=== PATIENT | female | born 1960 ===

== ENCOUNTER 2016-09-21 17:09 | Observation (INO) | payer MEDICAID ==
[2016-09-21] MEDS ORDERED: Piperacillin/Tazobact 3.375 GM in Sodium Chloride 0.9% 100 ML IVPB STA (18:26)
--- NOTE | 2016-09-21 19:05 | ED PDOC ---
HPI: General Adult Time Seen by Provider: 09/21/16 18:02 Chief Complaint (Nursing): Breast Problem Chief Complaint (Provider): Lump on left breast History Per: Patient History/Exam Limitations: no limitations Onset/Duration Of Symptoms: Persistent (3 weeks ) Current Symptoms Are (Timing): Still Present Additional Complaint(s): Becca Barbour is a 56 y/o female presenting to the ER on 09/21/2016 with complaints of a painful lump on her left breast that has been persistent for the past three weeks. Patient denies any associated discharge, fever, or shortness of breath. Patient states she does not have a family history of breast cancer. She notes one year ago she had a routine mammogram performed which was normal. Past Medical History Reviewed: Historical Data, Nursing Documentation, Vital Signs Vital Signs: Last Vital Signs Temp 98 F 09/21/16 17:45 Pulse 75 09/21/16 17:45 Resp 18 09/21/16 17:45 BP 158/82 H 09/21/16 17:45 Pulse Ox 98 09/22/16 00:01 - Medical History PMH: HTN - Surgical History Surgical History: - Family History Family History: States: Unknown Family Hx - Social History Current smoker - smoking cessation education provided: No Alcohol: None Drugs: Denies - Home Medications Home Medications: Ambulatory Orders Medication Instructions Recorded Aspirin [Ecotrin] 81 mg PO DAILY #0 tabec 06/28/15 Lisinopril/Hydrochlorothiazide 1 tab PO DAILY #0 tablet 06/28/15 [Lisinopril-Hctz 20-25 mg Tab] MetFORMIN [glucoPHAGE] 1,000 mg PO BID #0 tab 06/28/15 SITagliptin [Januvia] 50 mg PO DAILY #0 tab 06/28/15 - Allergies Allergies/Adverse Reactions: Allergies Allergy/AdvReac Type Severity Reaction Status Date / Time No Known Allergies Allergy Verified 06/27/15 17:16 Review of Systems ROS Statement: Except As Marked, All Systems Reviewed And Found Negative Constitutional: Negative for: Fever Respiratory: Negative for: Shortness of Breath Skin: Positive for: Other ((+) lump on left breast ) Neurological: Negative for: Weakness, Numbness Physical Exam - Reviewed Nursing Documentation Reviewed: Yes Vital Signs Reviewed: Yes - Physical Exam Appears: Positive for: Non-toxic, No Acute Distress Head Exam: Positive for: ATRAUMATIC, NORMOCEPHALIC Skin: Positive for: Normal Color. Negative for: Rash Eye Exam: Positive for: Normal appearance, EOMI, PERRL ENT: Positive for: Normal ENT Inspection Neck: Positive for: Normal, Painless ROM, Supple Cardiovascular/Chest: Positive for: Other (Dime sized fluctuance mass on one o clock position of areola w/ underlying large indurated mass with moderate erythema, no nipple discharge) Respiratory: Positive for: Normal Breath Sounds. Negative for: Respiratory Distress Gastrointestinal/Abdominal: Positive for: Normal Exam, Soft. Negative for: Tenderness Back: Positive for: Normal Inspection. Negative for: L CVA Tenderness, R CVA Tenderness Extremity: Positive for: Normal ROM. Negative for: Deformity, Swelling Neurologic/Psych: Positive for: Alert, Oriented. Negative for: Motor/Sensory Deficits - Laboratory Results Result Diagrams: 09/21/16 19:25 09/21/16 19:25 - ECG O2 Sat by Pulse Oximetry: 98 Medical Decision Making Medical Decision Makin:02 Initial Impression- 56 y/o female with lump on left breast Initial Plan- * Type and Screen * EKG * CMP * CBC w/ differential * PT * PT/INR * CXR * Vancomycin * Zosyn * Blood Cx * Urinalysis * US Breast Limited Pt will be placed under ED Observation. See ED OBS for further updates. Documented by Kyra Neff, acting as a scribe for Taj Bettencourt PA-C All medical record entries made by the Scribe were at my direction and personally dictated by me. I have reviewed the chart and agree that the record accurately reflects my personal performance of the history, physical exam, medical decision making, and the department course for this patient. I have also personally directed, reviewed, and agree with the discharge instructions and disposition. ED OBSERVATION Date of observation admission: 09/21/16 Time of observation admission: 18:28 - Observation admission statement Patient is being placed in observation because:: Secondary to extensive ED workup - Goals of Observation Goals of observation are:: Pending labs, imaging studies, re-evaluation and final disposition. - Progress Note Progress Note: 09/22/16 20:09 Glucose: 413 Insulin 6 units IV, IV NS bolus x 1 given. 09/22/16 21:20 Breast US: Solid hypervascular ill-defined mass retroareolar region left breast 12 o'clock. Infectious/inflammatory process ease are likely. Malignancy should also be considered. Case d/w Dr. Rice and arrangements made for admission. Repeat FSBS: 189 No ketones in urine. Disposition - Clinical Impression Clinical Impression: Cellulitis of breast, Cyst of breast - Patient ED Disposition Is Patient to be Admitted: Yes - Disposition Disposition Time: 21:20 Condition: STABLE
--- NOTE | 2016-09-21 19:10 | US ---
PROCEDURE: Left breast ultrasound HISTORY: Left breast lump COMPARISON: None TECHNIQUE: Standard protocol for this study/examination. FINDINGS: Cyst(s): None Breast mass: Superficial solid retroareolar mass 12 o'clock left breast. The mass is hypervascular. There is a cutaneous and subcutaneous component. The mass measures 1.3 x 3.4 x 4.3 cm. Dilated ducts: None Parenchymal distortion: None Skin thickening or subcutaneous abnormalities: Adjacent cutaneous and subcutaneous edema noted. IMPRESSION: Solid hypervascular ill-defined mass retroareolar region left breast 12 o'clock. Infectious/inflammatory process ease are likely. Malignancy should also be considered. BIRADS 0 Incomplete - if inflammatory etiologies are considered follow-up to resolution recommended. If malignancy is even a remote possibility follow-up mammogram is strongly recommended.
[2016-09-21 19:44] LABS: BASO % 0.7 % (0.0-2.0); EOS # 0.2 K/uL (0.0-0.7); EOS % 2.7 % (0.0-4.0); HEMATOCRIT 42.8 % (34.0-47.0); LYMPH # 2.4 K/uL (1.0-4.3); LYMPH % 33.5 % (20.0-40.0); MEAN CELL VOLUME 88.2 fl (81.0-99.0); MEAN CORPUSCULAR HEMOGLOBIN 28.8 pg (27.0-31.0); MEAN CORPUSCULAR HGB CONC 32.6 g/dL (33.0-37.0); MEAN PLATELET VOLUME 10.2 fl (7.2-11.7); MONO # 0.5 K/uL (0.0-0.8); MONO % 7.1 % (0.0-10.0); NRBC % 0.1 % (0.0-0.0); RED CELL DISTRIBUTION WIDTH 13.5 % (11.5-14.5); WHITE BLOOD COUNT 7.1 K/uL (4.8-10.8)
[2016-09-21] MEDS ORDERED: Vancomycin 1 g Inj ONE (19:49)
[2016-09-21 20:01] LABS: ALB/GLOB RATIO 1.2 (1.0-2.1); ALKALINE PHOSPHATASE 157 U/L (38-126); ALT/SGPT 32 U/L (9-52); AST/SGOT 26 U/L (14-36); BILIRUBIN,TOTAL 0.7 mg/dl (0.2-1.3); BLOOD UREA NITROGEN 17 mg/dl (7-17); CALCIUM 9.6 mg/dL (8.4-10.2); CARBON DIOXIDE 27 mmol/L (22-30); CHLORIDE 97 mmol/L (98-107); GFR AFRICAN-AMERICAN > 60; POTASSIUM 4.5 MMOL/L (3.6-5.0); SODIUM 135 mmol/l (132-148); TOTAL PROTEIN 7.3 G/DL (6.3-8.2)
[2016-09-21 20:17] LABS: GLUCOSE,RANDOM 413 mg/dL (65-105)
[2016-09-21] MEDS ORDERED: Sodium Chloride 0.9% 1,000 ML IV STA (20:19)
[2016-09-21] MEDS ORDERED: Insulin Regular 100 units/ml IVP STA (20:19)
[2016-09-21 20:27] LABS: PARTIAL THROMBOPLASTIN TIME 28.9 Seconds (25.6-37.1)
[2016-09-21 20:31] LABS: PH,URINE 5.5 (5.0-8.0); URINE BILIRUBIN NEGATIVE (NEGATIVE); URINE BLOOD NEGATIVE (NEGATIVE); URINE COLOR YELLOW (YELLOW); URINE GLUCOSE (UA) >1000 mg/dL (Normal); URINE KETONE NEGATIVE (NEGATIVE)
[2016-09-21 20:32] LABS: URINE LEUKOCYTE ESTERASE TRACE Leu/uL (Negative); URINE PROTEIN NEGATIVE (NEGATIVE); URINE UROBILINOGEN 0.2 mg/dL (0.2-1.0)
[2016-09-21 20:41] LABS: RBC URINE < 1 /hpf (0-3); URINE BACTERIA FEW (<OCC); WBC URINE 12 /hpf (0-5)
[2016-09-21] MEDS ORDERED: Piperacillin/Tazobact 3.375 gm Inj IVPB ONE (21:33)
[2016-09-22] MEDS ORDERED: Piperacillin/Tazobact 3.375 GM in Sodium Chloride 0.9% 100 ML IVPB SCH ×2 (01:00→09:00)
[2016-09-22] MEDS ORDERED: Piperacillin/Tazobact 3.375 gm Inj IVPB ONE (05:53)
[2016-09-22 06:24] LABS: ALB/GLOB RATIO 1.1 (1.0-2.1); ALKALINE PHOSPHATASE 115 U/L (38-126); ALT/SGPT 35 U/L (9-52); AST/SGOT 24 U/L (14-36); BILIRUBIN,TOTAL 0.8 mg/dl (0.2-1.3); BLOOD UREA NITROGEN 13 mg/dl (7-17); CALCIUM 8.6 mg/dL (8.4-10.2); CARBON DIOXIDE 25 mmol/L (22-30); CHLORIDE 104 mmol/L (98-107); GFR AFRICAN-AMERICAN > 60; GLUCOSE,RANDOM 288 mg/dL (65-105); POTASSIUM 3.7 MMOL/L (3.6-5.0); SODIUM 137 mmol/l (132-148); TOTAL PROTEIN 6.1 G/DL (6.3-8.2)
--- NOTE | 2016-09-22 07:57 | CP.PCM.CON ---
<Elvis Weston - Last Filed: 09/22/16 07:53> History of Present Illness - History of Present Illness History of Present Illness: Surgery consult for Dr. Preston Becca Barbour is a 56 y/o female w PMH of DM and HTN came with complaints of a painful lump on her left breast that has been persistent for the past three weeks. Pt reports that lump is getting larger and more painful progressively. Patient denies any associated discharge, recent trauma, fever, chills, nausea, vomiting , chest pain or shortness of breath. Patient states family history of breast cancer. She notes one year ago she had a routine mammogram performed which was normal. US of the breast shows infectious/inflammatory process. Her glucose level was 400. WBC was wnl. PMH: DM, HTN PSH: Review of Systems - Review of Systems Review of Systems: See HPI Past Patient History - Past Medical History & Family History Past Medical History?: Yes - Past Social History Alcohol: None Drugs: Denies - CARDIAC Hx Hypertension: Yes - PULMONARY Hx Respiratory Disorders: No - NEUROLOGICAL Hx Neurological Disorder: No - ENDOCRINE/METABOLIC Hx Endocrine Disorders: Yes Hx Diabetes Mellitus Type 2: Yes - HEMATOLOGICAL/ONCOLOGICAL Hx Blood Disorders: No - INTEGUMENTARY Hx Dermatological Problems: No - MUSCULOSKELETAL/RHEUMATOLOGICAL Hx Musculoskeletal Disorders: No Hx Falls: No - GASTROINTESTINAL Hx Gastrointestinal Disorders: No - GENITOURINARY/GYNECOLOGICAL Hx Genitourinary Disorders: No Other/Comment: ectopic - PSYCHIATRIC Hx Psychophysiologic Disorder: No Hx Substance Use: No - SURGICAL HISTORY Hx Surgeries: Yes Hx Section: Yes - ANESTHESIA Hx Anesthesia: Yes Hx Anesthesia Reactions: No Meds Allergies/Adverse Reactions: Allergies Allergy/AdvReac Type Severity Reaction Status Date / Time No Known Allergies Allergy Verified 06/27/15 17:16 - Medications Medications: Current Medications Aspirin (Ecotrin) 81 mg PO DAILY [facility] Hydrochlorothiazide (Hydrodiuril) 25 mg PO DAILY [facility] Piperacillin Sod/Tazobactam (Sod 3.375 gm/ Sodium Chloride) 100 mls @ 100 mls/ hr IVPB Q8 [facility] Last Admin: 09/22/16 06:12 Dose: 100 mls/hr Vancomycin HCl 1 gm/ Sodium (Chloride) 250 mls @ 166.667 mls/hr IVPB DAILY [facility] Insulin Human Regular (Humulin R) 0 units SC ACHS [facility] Lisinopril (Zestril) 20 mg PO DAILY [facility] Metformin HCl (Glucophage) 1,000 mg PO BID [facility] Sitagliptin Phosphate (Januvia) 50 mg PO DAILY [facility] Physical Exam - Constitutional Appears: Well, No Acute Distress - Head Exam Head Exam: ATRAUMATIC, NORMAL INSPECTION, NORMOCEPHALIC - Eye Exam Eye Exam: EOMI, Normal appearance, PERRL Pupil Exam: NORMAL ACCOMODATION, PERRL - ENT Exam ENT Exam: Mucous Membranes Moist, Normal Exam - Neck Exam Neck exam: Positive for: Normal Inspection - Respiratory Exam Respiratory Exam: Clear to Auscultation Bilateral, NORMAL BREATHING PATTERN - Cardiovascular Exam Cardiovascular Exam: REGULAR RHYTHM - GI/Abdominal Exam GI & Abdominal Exam: Normal Bowel Sounds, Soft. absent: Distended, Firm, Guarding, Hernia, Tenderness - Extremities Exam Extremities exam: Positive for: normal inspection - Back Exam Back exam: NORMAL INSPECTION - Neurological Exam Neurological exam: Alert, CN II-XII Intact, Normal Gait, Oriented x3, Reflexes Normal - Psychiatric Exam Psychiatric exam: Normal Affect, Normal Mood - Skin Skin Exam: Dry, Erythema, Intact, Normal Color, Warm Additional comments: L breast : above the nipple 5cm erythema, 1cm central fluctuant. TTP. NO discharge. Warm Results - Vital Signs Recent Vital Signs: Last Vital Signs Temp 97.1 F L 09/22/16 06:04 Pulse 69 09/22/16 06:04 Resp 14 09/22/16 06:04 BP 176/96 H 09/22/16 06:04 Pulse Ox 98 09/22/16 06:04 - Labs Result Diagrams: 09/21/16 19:25 09/22/16 05:35 Labs: Laboratory Results - last 24 hr 09/21/16 09/21/16 09/21/16 19:25 19:25 19:25 WBC 7.1 RBC 4.86 Hgb 14.0 Hct 42.8 MCV 88.2 MCH 28.8 MCHC 32.6 L RDW 13.5 Plt Count 238 MPV 10.2 Neut % (Auto) 56.0 Lymph % (Auto) 33.5 [place] % (Auto) 7.1 Eos % (Auto) 2.7 Baso % (Auto) 0.7 Neut # 4.0 Lymph # 2.4 [place] # 0.5 Eos # 0.2 Baso # 0.0 ESR PT INR APTT Sodium 135 Potassium 4.5 Chloride 97 L Carbon Dioxide 27 Anion Gap 16 BUN 17 Creatinine 0.6 L Est GFR ( Amer) > 60 Est GFR (Non-Af Amer) > 60 Random Glucose 413 H* D Calcium 9.6 Total Bilirubin 0.7 AST 26 ALT 32 Alkaline Phosphatase 157 H D Total Protein 7.3 Albumin 3.9 Globulin 3.4 Albumin/Globulin Ratio 1.2 Urine Color Urine Clarity Urine pH Ur Specific [place] Urine Protein Urine Glucose (UA) Urine Ketones Urine Blood Urine Nitrate Urine Bilirubin Urine Urobilinogen Ur Leukocyte Esterase Urine RBC (Auto) Urine Microscopic WBC Ur Squamous Epith Cells Urine Bacteria Blood Type O POSITIVE Antibody Screen Negative BBK History Checked No verified bt 09/21/16 09/21/16 09/22/16 19:25 20:09 05:35 WBC RBC Hgb Hct MCV MCH MCHC RDW Plt Count MPV Neut % (Auto) Lymph % (Auto) [place] % (Auto) Eos % (Auto) Baso % (Auto) Neut # Lymph # [place] # Eos # Baso # ESR PT 10.3 INR 0.9 APTT 28.9 Sodium 137 Potassium 3.7 Chloride 104 Carbon Dioxide 25 Anion Gap 11 BUN 13 Creatinine 0.5 L Est GFR ( Amer) > 60 Est GFR (Non-Af Amer) > 60 Random Glucose 288 H Calcium 8.6 Total Bilirubin 0.8 AST 24 ALT 35 Alkaline Phosphatase 115 Total Protein 6.1 L Albumin 3.2 L Globulin 2.9 Albumin/Globulin Ratio 1.1 Urine Color Yellow Urine Clarity Clear Urine pH 5.5 Ur Specific [place] 1.010 Urine Protein Negative Urine Glucose (UA) >1000 Urine Ketones Negative Urine Blood Negative Urine Nitrate Negative Urine Bilirubin Negative Urine Urobilinogen 0.2 Ur Leukocyte Esterase Trace H Urine RBC (Auto) < 1 Urine Microscopic WBC 12 H Ur Squamous Epith Cells 15 H Urine Bacteria Few H Blood Type Antibody Screen BBK History Checked 09/22/16 05:35 WBC RBC Hgb Hct MCV MCH MCHC RDW Plt Count MPV Neut % (Auto) Lymph % (Auto) [place] % (Auto) Eos % (Auto) Baso % (Auto) Neut # Lymph # [place] # Eos # Baso # ESR 10 PT INR APTT Sodium Potassium Chloride Carbon Dioxide Anion Gap BUN Creatinine Est GFR ( Amer) Est GFR (Non-Af Amer) Random Glucose Calcium Total Bilirubin AST ALT Alkaline Phosphatase Total Protein Albumin Globulin Albumin/Globulin Ratio Urine Color Urine Clarity Urine pH Ur Specific [place] Urine Protein Urine Glucose (UA) Urine Ketones Urine Blood Urine Nitrate Urine Bilirubin Urine Urobilinogen Ur Leukocyte Esterase Urine RBC (Auto) Urine Microscopic WBC Ur Squamous Epith Cells Urine Bacteria Blood Type Antibody Screen BBK History Checked Assessment & Plan - Assessment and Plan (Free Text) Assessment: L breast abscess She notes one year ago she had a routine mammogram performed which was normal. US of the breast shows infectious/inflammatory process. Her glucose level was 400. WBC was wnl. -OR today at 4pm for needle aspiration and / or I &D -NPO -IVF -Glucose control -Medical management DW Dr. Preston <Lewis Preston - Last Filed: 09/22/16 16:33> Meds - Medications Medications: Current Medications Aspirin (Ecotrin) 81 mg PO DAILY [facility] Vancomycin HCl 1 gm/ Sodium (Chloride) 250 mls @ 166.667 mls/hr IVPB DAILY [facility] Sodium Chloride (Sodium Chloride 0.9%) 1,000 mls @ 100 mls/hr IV .Q10H [facility] Stop: 09/23/16 08:17 Last Admin: 09/22/16 08:48 Dose: 100 mls/hr Piperacillin Sod/Tazobactam (Sod 3.375 gm/ Sodium Chloride) 100 mls @ 100 mls/ hr IVPB Q8@0600,1400,2200 [facility] Last Admin: 09/22/16 15:28 Dose: 100 mls/hr Insulin Human Regular (Humulin R) 0 units SC ACHS [facility] Last Admin: 09/22/16 08:21 Dose: 12 u Lisinopril (Zestril) 40 mg PO DAILY [facility] Metformin HCl (Glucophage) 1,000 mg PO BID [facility] Last Admin: 09/22/16 08:55 Dose: 1,000 mg Pioglitazone HCl (Actos) 30 mg PO DAILY [facility] Sitagliptin Phosphate (Januvia) 100 mg PO DAILY [facility] Results - Vital Signs Recent Vital Signs: Last Vital Signs Temp 101.4 F H 09/22/16 16:20 Pulse 78 09/22/16 16:20 Resp 20 09/22/16 16:20 BP 111/69 09/22/16 16:20 Pulse Ox 97 09/22/16 16:20 - Labs Result Diagrams: 09/21/16 19:25 09/22/16 05:35 Labs: Laboratory Results - last 24 hr 09/21/16 09/21/16 09/21/16 19:25 19:25 19:25 WBC 7.1 RBC 4.86 Hgb 14.0 Hct 42.8 MCV 88.2 MCH 28.8 MCHC 32.6 L RDW 13.5 Plt Count 238 MPV 10.2 Neut % (Auto) 56.0 Lymph % (Auto) 33.5 [place] % (Auto) 7.1 Eos % (Auto) 2.7 Baso % (Auto) 0.7 Neut # 4.0 Lymph # 2.4 [place] # 0.5 Eos # 0.2 Baso # 0.0 ESR PT INR APTT Sodium 135 Potassium 4.5 Chloride 97 L Carbon Dioxide 27 Anion Gap 16 BUN 17 Creatinine 0.6 L Est GFR ( Amer) > 60 Est GFR (Non-Af Amer) > 60 POC Glucose (mg/dL) Random Glucose 413 H* D Calcium 9.6 Total Bilirubin 0.7 AST 26 ALT 32 Alkaline Phosphatase 157 H D Total Protein 7.3 Albumin 3.9 Globulin 3.4 Albumin/Globulin Ratio 1.2 Urine Color Urine Clarity Urine pH Ur Specific [place] Urine Protein Urine Glucose (UA) Urine Ketones Urine Blood Urine Nitrate Urine Bilirubin Urine Urobilinogen Ur Leukocyte Esterase Urine RBC (Auto) Urine Microscopic WBC Ur Squamous Epith Cells Urine Bacteria Blood Type O POSITIVE Antibody Screen Negative BBK History Checked No verified bt 09/21/16 09/21/16 09/21/16 19:25 20:09 22:23 WBC RBC Hgb Hct MCV MCH MCHC RDW Plt Count MPV Neut % (Auto) Lymph % (Auto) [place] % (Auto) Eos % (Auto) Baso % (Auto) Neut # Lymph # [place] # Eos # Baso # ESR PT 10.3 INR 0.9 APTT 28.9 Sodium Potassium Chloride Carbon Dioxide Anion Gap BUN Creatinine Est GFR ( Amer) Est GFR (Non-Af Amer) POC Glucose (mg/dL) 189 H Random Glucose Calcium Total Bilirubin AST ALT Alkaline Phosphatase Total Protein Albumin Globulin Albumin/Globulin Ratio Urine Color Yellow Urine Clarity Clear Urine pH 5.5 Ur Specific [place] 1.010 Urine Protein Negative Urine Glucose (UA) >1000 Urine Ketones Negative Urine Blood Negative Urine Nitrate Negative Urine Bilirubin Negative Urine Urobilinogen 0.2 Ur Leukocyte Esterase Trace H Urine RBC (Auto) < 1 Urine Microscopic WBC 12 H Ur Squamous Epith Cells 15 H Urine Bacteria Few H Blood Type Antibody Screen BBK History Checked 09/22/16 09/22/16 09/22/16 05:35 05:35 08:02 WBC RBC Hgb Hct MCV MCH MCHC RDW Plt Count MPV Neut % (Auto) Lymph % (Auto) [place] % (Auto) Eos % (Auto) Baso % (Auto) Neut # Lymph # [place] # Eos # Baso # ESR 10 PT INR APTT Sodium 137 Potassium 3.7 Chloride 104 Carbon Dioxide 25 Anion Gap 11 BUN 13 Creatinine 0.5 L Est GFR ( Amer) > 60 Est GFR (Non-Af Amer) > 60 POC Glucose (mg/dL) 311 H Random Glucose 288 H Calcium 8.6 Total Bilirubin 0.8 AST 24 ALT 35 Alkaline Phosphatase 115 Total Protein 6.1 L Albumin 3.2 L Globulin 2.9 Albumin/Globulin Ratio 1.1 Urine Color Urine Clarity Urine pH Ur Specific [place] Urine Protein Urine Glucose (UA) Urine Ketones Urine Blood Urine Nitrate Urine Bilirubin Urine Urobilinogen Ur Leukocyte Esterase Urine RBC (Auto) Urine Microscopic WBC Ur Squamous Epith Cells Urine Bacteria Blood Type Antibody Screen BBK History Checked 09/22/16 11:37 WBC RBC Hgb Hct MCV MCH MCHC RDW Plt Count MPV Neut % (Auto) Lymph % (Auto) [place] % (Auto) Eos % (Auto) Baso % (Auto) Neut # Lymph # [place] # Eos # Baso # ESR PT INR APTT Sodium Potassium Chloride Carbon Dioxide Anion Gap BUN Creatinine Est GFR ( Amer) Est GFR (Non-Af Amer) POC Glucose (mg/dL) 266 H Random Glucose Calcium Total Bilirubin AST ALT Alkaline Phosphatase Total Protein Albumin Globulin Albumin/Globulin Ratio Urine Color Urine Clarity Urine pH Ur Specific [place] Urine Protein Urine Glucose (UA) Urine Ketones Urine Blood Urine Nitrate Urine Bilirubin Urine Urobilinogen Ur Leukocyte Esterase Urine RBC (Auto) Urine Microscopic WBC Ur Squamous Epith Cells Urine Bacteria Blood Type Antibody Screen BBK History Checked Attending/Attestation - Attestation I have personally seen and examined this patient.: Yes I have fully participated in the care of the patient.: Yes I have reviewed all pertinent clinical information: Yes Notes (Text): 09/22/16 16:32 Pt was seen and examined at bedside on 09/22/16 Agree with above note and assessment. Pt with left breast pain and Abscess OR for I & D of left breast abscess Consent NPO, IVF IV antibiotics Plan d.w pt in detail Risk and benefit explained in detail.
--- NOTE | 2016-09-22 08:16 | CARD ---
APPROVED REPORT EKG Measurement Heart [id number] <Conclusion> Normal sinus rhythm Septal infarct, age undetermined Abnormal ECG
[2016-09-22] MEDS: Insulin Regular 100 units/ml SC SCH ×3 (08:21→22:00)
[2016-09-22] MEDS: Sodium Chloride 0.9% 1,000 ML IV SCH ×2 (08:48→18:30)
[2016-09-22] MEDS ORDERED: Patient's Own Med (Lisinopril/Hydrochlorothiazide [Lisinopril-Hctz 20-25 Mg Tab] 1 TAB) PO SCH (09:00)
--- NOTE | 2016-09-22 13:02 | RAD ---
HISTORY: clearance COMPARISON: 06/27/2015 TECHNIQUE: Chest PA and lateral FINDINGS: LUNGS: No active pulmonary disease. PLEURA: No significant pleural effusion identified. No pneumothorax apparent. CARDIOVASCULAR: Normal. OSSEOUS STRUCTURES: No significant abnormalities. VISUALIZED UPPER ABDOMEN: Normal. OTHER FINDINGS: None. IMPRESSION: No active disease.
[2016-09-22] MEDS: Piperacillin/Tazobact 3.375 GM in Sodium Chloride 0.9% 100 ML IVPB SCH ×2 (15:28→22:22)
--- NOTE | 2016-09-22 19:46 | CP.PCM.CON ---
History of Present Illness - History of Present Illness History of Present Illness: ID NOTE PATIENT IS 56 YO FEMALE ADMITTED C LEFT BREAST ABSCESS. SHE STATES IT STARTED 4 WEEKS AGO AND HAS BECOME LARGER AND MORE PAINFUL DENIES FEVER AND CHILLS FOR I & D TOMORROW HAVE INCREASED DOSE OF VANCOMYCIN CONTINUE ZOSYN Past Patient History - Past Medical History & Family History Past Medical History?: Yes - Past Social History Smoking Status: Never Smoked - CARDIAC Hx Hypertension: Yes - PULMONARY Hx Respiratory Disorders: No - NEUROLOGICAL Hx Neurological Disorder: No - ENDOCRINE/METABOLIC Hx Endocrine Disorders: Yes Hx Diabetes Mellitus Type 2: Yes - HEMATOLOGICAL/ONCOLOGICAL Hx Blood Disorders: No - INTEGUMENTARY Hx Dermatological Problems: No - MUSCULOSKELETAL/RHEUMATOLOGICAL Hx Falls: No - GASTROINTESTINAL Hx Gastrointestinal Disorders: No - GENITOURINARY/GYNECOLOGICAL Hx Genitourinary Disorders: No Other/Comment: ectopic - PSYCHIATRIC Hx Substance Use: No - SURGICAL HISTORY Hx Surgeries: Yes Hx Section: Yes - ANESTHESIA Hx Anesthesia: Yes Hx Anesthesia Reactions: No Meds Allergies/Adverse Reactions: Allergies Allergy/AdvReac Type Severity Reaction Status Date / Time No Known Allergies Allergy Verified 06/27/15 17:16 - Medications Medications: Current Medications Acetaminophen (Tylenol 325mg Tab) 650 mg PO Q4 PRN PRN Reason: Headache Aspirin (Ecotrin) 81 mg PO DAILY [facility] Sodium Chloride (Sodium Chloride 0.9%) 1,000 mls @ 100 mls/hr IV .Q10H [facility] Stop: 09/23/16 08:17 Last Admin: 09/22/16 18:30 Dose: 100 mls/hr Piperacillin Sod/Tazobactam (Sod 3.375 gm/ Sodium Chloride) 100 mls @ 100 mls/ hr IVPB Q8@0600,1400,2200 [facility] Last Admin: 09/22/16 15:28 Dose: 100 mls/hr Vancomycin HCl 1 gm/ Sodium (Chloride) 250 mls @ 166.667 mls/hr IVPB Q12 [facility] Insulin Human Regular (Humulin R) 0 units SC ACHS [facility] Last Admin: 09/22/16 16:30 Dose: Not Given Lisinopril (Zestril) 40 mg PO DAILY [facility] Metformin HCl (Glucophage) 1,000 mg PO BID [facility] Last Admin: 09/22/16 19:17 Dose: 1,000 mg Pioglitazone HCl (Actos) 30 mg PO DAILY [facility] Sitagliptin Phosphate (Januvia) 100 mg PO DAILY [facility] Results - Vital Signs Recent Vital Signs: Last Vital Signs Temp 101.4 F H 09/22/16 16:20 Pulse 78 09/22/16 16:20 Resp 20 09/22/16 16:20 BP 111/69 09/22/16 16:20 Pulse Ox 97 09/22/16 16:20 - Labs Result Diagrams: 09/21/16 19:25 09/22/16 05:35 Labs: Laboratory Results - last 24 hr 09/21/16 09/21/16 09/21/16 19:25 19:25 19:25 WBC 7.1 RBC 4.86 Hgb 14.0 Hct 42.8 MCV 88.2 MCH 28.8 MCHC 32.6 L RDW 13.5 Plt Count 238 MPV 10.2 Neut % (Auto) 56.0 Lymph % (Auto) 33.5 [place] % (Auto) 7.1 Eos % (Auto) 2.7 Baso % (Auto) 0.7 Neut # 4.0 Lymph # 2.4 [place] # 0.5 Eos # 0.2 Baso # 0.0 ESR PT INR APTT Sodium 135 Potassium 4.5 Chloride 97 L Carbon Dioxide 27 Anion Gap 16 BUN 17 Creatinine 0.6 L Est GFR ( Amer) > 60 Est GFR (Non-Af Amer) > 60 POC Glucose (mg/dL) Random Glucose 413 H* D Calcium 9.6 Total Bilirubin 0.7 AST 26 ALT 32 Alkaline Phosphatase 157 H D Total Protein 7.3 Albumin 3.9 Globulin 3.4 Albumin/Globulin Ratio 1.2 Urine Color Urine Clarity Urine pH Ur Specific [place] Urine Protein Urine Glucose (UA) Urine Ketones Urine Blood Urine Nitrate Urine Bilirubin Urine Urobilinogen Ur Leukocyte Esterase Urine RBC (Auto) Urine Microscopic WBC Ur Squamous Epith Cells Urine Bacteria Blood Type O POSITIVE Antibody Screen Negative BBK History Checked No verified bt 09/21/16 09/21/16 09/21/16 19:25 20:09 22:23 WBC RBC Hgb Hct MCV MCH MCHC RDW Plt Count MPV Neut % (Auto) Lymph % (Auto) [place] % (Auto) Eos % (Auto) Baso % (Auto) Neut # Lymph # [place] # Eos # Baso # ESR PT 10.3 INR 0.9 APTT 28.9 Sodium Potassium Chloride Carbon Dioxide Anion Gap BUN Creatinine Est GFR ( Amer) Est GFR (Non-Af Amer) POC Glucose (mg/dL) 189 H Random Glucose Calcium Total Bilirubin AST ALT Alkaline Phosphatase Total Protein Albumin Globulin Albumin/Globulin Ratio Urine Color Yellow Urine Clarity Clear Urine pH 5.5 Ur Specific [place] 1.010 Urine Protein Negative Urine Glucose (UA) >1000 Urine Ketones Negative Urine Blood Negative Urine Nitrate Negative Urine Bilirubin Negative Urine Urobilinogen 0.2 Ur Leukocyte Esterase Trace H Urine RBC (Auto) < 1 Urine Microscopic WBC 12 H Ur Squamous Epith Cells 15 H Urine Bacteria Few H Blood Type Antibody Screen BBK History Checked 09/22/16 09/22/16 09/22/16 05:35 05:35 08:02 WBC RBC Hgb Hct MCV MCH MCHC RDW Plt Count MPV Neut % (Auto) Lymph % (Auto) [place] % (Auto) Eos % (Auto) Baso % (Auto) Neut # Lymph # [place] # Eos # Baso # ESR 10 PT INR APTT Sodium 137 Potassium 3.7 Chloride 104 Carbon Dioxide 25 Anion Gap 11 BUN 13 Creatinine 0.5 L Est GFR ( Amer) > 60 Est GFR (Non-Af Amer) > 60 POC Glucose (mg/dL) 311 H Random Glucose 288 H Calcium 8.6 Total Bilirubin 0.8 AST 24 ALT 35 Alkaline Phosphatase 115 Total Protein 6.1 L Albumin 3.2 L Globulin 2.9 Albumin/Globulin Ratio 1.1 Urine Color Urine Clarity Urine pH Ur Specific [place] Urine Protein Urine Glucose (UA) Urine Ketones Urine Blood Urine Nitrate Urine Bilirubin Urine Urobilinogen Ur Leukocyte Esterase Urine RBC (Auto) Urine Microscopic WBC Ur Squamous Epith Cells Urine Bacteria Blood Type Antibody Screen BBK History Checked 09/22/16 11:37 WBC RBC Hgb Hct MCV MCH MCHC RDW Plt Count MPV Neut % (Auto) Lymph % (Auto) [place] % (Auto) Eos % (Auto) Baso % (Auto) Neut # Lymph # [place] # Eos # Baso # ESR PT INR APTT Sodium Potassium Chloride Carbon Dioxide Anion Gap BUN Creatinine Est GFR ( Amer) Est GFR (Non-Af Amer) POC Glucose (mg/dL) 266 H Random Glucose Calcium Total Bilirubin AST ALT Alkaline Phosphatase Total Protein Albumin Globulin Albumin/Globulin Ratio Urine Color Urine Clarity Urine pH Ur Specific [place] Urine Protein Urine Glucose (UA) Urine Ketones Urine Blood Urine Nitrate Urine Bilirubin Urine Urobilinogen Ur Leukocyte Esterase Urine RBC (Auto) Urine Microscopic WBC Ur Squamous Epith Cells Urine Bacteria Blood Type Antibody Screen BBK History Checked
[2016-09-23] MEDS: Piperacillin/Tazobact 3.375 GM in Sodium Chloride 0.9% 100 ML IVPB SCH ×3 (06:02→22:35)
[2016-09-23 06:22] LABS: BLOOD UREA NITROGEN 12 mg/dl (7-17); CALCIUM 8.4 mg/dL (8.4-10.2); CARBON DIOXIDE 25 mmol/L (22-30); CHLORIDE 105 mmol/L (98-107); GFR AFRICAN-AMERICAN > 60; GLUCOSE,RANDOM 146 mg/dL (65-105); POTASSIUM 3.7 MMOL/L (3.6-5.0); SODIUM 136 mmol/l (132-148)
[2016-09-23] MEDS: Insulin Regular 100 units/ml SC SCH ×4 (07:11→22:30)
[2016-09-23] MEDS: Sodium Chloride 0.9% 1,000 ML IV SCH (08:41)
--- NOTE | 2016-09-23 10:20 | CP.PCM.HP ---
History of Present Illness - History of Present Illness History of Present Illness: This is a 56 y/o female admitted for swelling and tenderness of the left breast for almost three weeks. Has a hx of DM 2 uncontrolled and HTN. She had a normal mammogram last year. Claims that swelling developed into a lump and noted surrounding erythema hence sought medical evaluation at the ER. Initial breast US showed possible abscess/ cellulitis. Present on Admission - Present on Admission Any Indicators Present on Admission: No History of DVT/PE: No History of Uncontrolled Diabetes: Yes Urinary Catheter: No Decubitus Ulcer Present: No Review of Systems - Breasts Breasts: Pain, Skin Changes, Swelling Past Patient History - Past Medical History & Family History Past Medical History?: Yes - Past Social History Smoking Status: Never Smoked - CARDIAC Hx Hypertension: Yes - PULMONARY Hx Respiratory Disorders: No - NEUROLOGICAL Hx Neurological Disorder: No - ENDOCRINE/METABOLIC Hx Endocrine Disorders: Yes Hx Diabetes Mellitus Type 2: Yes - HEMATOLOGICAL/ONCOLOGICAL Hx Blood Disorders: No - INTEGUMENTARY Hx Dermatological Problems: No - MUSCULOSKELETAL/RHEUMATOLOGICAL Hx Falls: No - GASTROINTESTINAL Hx Gastrointestinal Disorders: No - GENITOURINARY/GYNECOLOGICAL Hx Genitourinary Disorders: No Other/Comment: ectopic - PSYCHIATRIC Hx Substance Use: No - SURGICAL HISTORY Hx Surgeries: Yes Hx Section: Yes - ANESTHESIA Hx Anesthesia: Yes Hx Anesthesia Reactions: No Meds Allergies/Adverse Reactions: Allergies Allergy/AdvReac Type Severity Reaction Status Date / Time No Known Allergies Allergy Verified 06/27/15 17:16 Physical Exam - Head Exam Head Exam: NORMAL INSPECTION - Eye Exam Eye Exam: Normal appearance - ENT Exam ENT Exam: Mucous Membranes Moist - Respiratory Exam Respiratory Exam: Clear to Auscultation Bilateral - Cardiovascular Exam Cardiovascular Exam: REGULAR RHYTHM - GI/Abdominal Exam GI & Abdominal Exam: Normal Bowel Sounds - Neurological Exam Neurological exam: Alert, CN II-XII Intact - Psychiatric Exam Psychiatric exam: Normal Mood - Skin Additional comments: swelling and tenderness on the left breast with a lump about 4 cm with surrounding erythema Results - Vital Signs Recent Vital Signs: Last Vital Signs Temp 98.2 F 09/23/16 00:53 Pulse 81 09/23/16 00:53 Resp 20 09/23/16 00:53 BP 121/78 09/23/16 00:53 Pulse Ox 99 09/23/16 00:53 - Labs Result Diagrams: 09/21/16 19:25 09/23/16 05:40 Labs: Laboratory Results - last 24 hr 09/22/16 09/22/16 09/22/16 11:37 16:24 21:58 ESR Sodium Potassium Chloride Carbon Dioxide Anion Gap BUN Creatinine Est GFR ( Amer) Est GFR (Non-Af Amer) POC Glucose (mg/dL) 266 H 101 287 H Random Glucose Calcium 09/23/16 09/23/16 05:40 05:40 ESR 12 Sodium 136 Potassium 3.7 Chloride 105 Carbon Dioxide 25 Anion Gap 10 BUN 12 Creatinine 0.5 L Est GFR ( Amer) > 60 Est GFR (Non-Af Amer) > 60 POC Glucose (mg/dL) Random Glucose 146 H Calcium 8.4 Assessment & Plan (1) Cellulitis of breast Status: Acute (2) Diabetes mellitus type 2 in nonobese Status: Acute (3) Hypertension Status: Acute - Assessment and Plan (Free Text) Plan: Iv antibiotics BP meds start po hypoglymeivcs surgical eval
--- NOTE | 2016-09-23 14:01 | CP.PCM.PN ---
Subjective - Date & Time of Evaluation Date of Evaluation: 09/23/16 Time of Evaluation: 10:00 - Subjective Subjective: pt seen and examined at bedside. No acute events overnight. Afebrile. Lying in bed comfortably, NAD. NPO since midnight. Reports feeling better overall but still complaining of left breast pain. No new complaints. OOB/ambulating w/o issue. Denies fever/chills, headaches, visual changes, CP/SOB/Palpitations, N/V/ D/C, urinary symptoms. Awaiting to go to OR for I&D around 13:00 today. Objective - Vital Signs/Intake and Output Vital Signs (last 24 hours): Temp Pulse Resp BP Pulse Ox 97.9 F 67 20 143/79 99 09/23/16 09:00 09/23/16 09:00 09/23/16 09:00 09/23/16 09:00 09/23/16 09:00 - Medications Medications: Current Medications Acetaminophen (Tylenol 325mg Tab) 650 mg PO Q4 PRN PRN Reason: Headache Last Admin: 09/22/16 19:50 Dose: 650 mg Aspirin (Ecotrin) 81 mg PO DAILY [facility] Piperacillin Sod/Tazobactam (Sod 3.375 gm/ Sodium Chloride) 100 mls @ 100 mls/ hr IVPB Q8@0600,1400,2200 [facility] Last Admin: 09/23/16 06:02 Dose: 100 mls/hr Vancomycin HCl 1 gm/ Sodium (Chloride) 250 mls @ 166.667 mls/hr IVPB Q12 [facility] Last Admin: 09/23/16 08:34 Dose: 166.667 mls/hr Insulin Human Regular (Humulin R) 0 units SC ACHS [facility] Last Admin: 09/23/16 12:13 Dose: Not Given Lisinopril (Zestril) 40 mg PO DAILY [facility] Last Admin: 09/23/16 08:43 Dose: Not Given Metformin HCl (Glucophage) 1,000 mg PO BID [facility] Last Admin: 09/23/16 08:42 Dose: Not Given Pioglitazone HCl (Actos) 30 mg PO DAILY [facility] Last Admin: 09/23/16 08:42 Dose: Not Given Sitagliptin Phosphate (Januvia) 100 mg PO DAILY [facility] Last Admin: 09/23/16 08:42 Dose: Not Given - Labs Labs: 09/21/16 19:25 09/23/16 05:40 PT 10.3 Seconds (9.8-13.1) 09/21/16 19:25 INR 0.9 (0.9-1.2) 09/21/16 19:25 APTT 28.9 Seconds (25.6-37.1) 09/21/16 19:25 - Constitutional Appears: Non-toxic, No Acute Distress - Eye Exam Eye Exam: EOMI. absent: Conjunctival injection, Scleral icterus Pupil Exam: PERRL - ENT Exam ENT Exam: Mucous Membranes Moist - Respiratory Exam Respiratory Exam: Chest Wall Tenderness, Clear to Ausculation Bilateral, NORMAL BREATHING PATTERN. absent: Rales, Rhonchi, Wheezes, Respiratory Distress Additional comments: tenderness around lateral portion of left breast. - Cardiovascular Exam Cardiovascular Exam: REGULAR RHYTHM, RRR, +S1, +S2. absent: Tachycardia, Gallop , JVD, Rubs, Murmur - GI/Abdominal Exam GI & Abdominal Exam: Soft, Normal Bowel Sounds. absent: Distended, Firm, Guarding, Rigid, Tenderness, Hyperactive Bowel Sounds, Rebound - Extremities Exam Extremities Exam: Full ROM, Normal Inspection. absent: Calf Tenderness, Pedal Edema, Tenderness - Neurological Exam Neurological Exam: Alert, Awake, CN II-XII Intact, Oriented x3 - Psychiatric Exam Psychiatric exam: Normal Affect, Normal Mood - Skin Skin Exam: Dry, Intact Assessment and Plan (1) Cellulitis of breast Assessment & Plan: currently being followed by ID Vancomycin 1gm Q12 and Zosyn Pt to go to OR for aspiration or ID Status: Acute (2) Diabetes mellitus type 2 in nonobese Assessment & Plan: HbA1c- 8.9 pioglitzazone 30mg QD Januvia 100mg QD Metformin 1000mg BID Status: Chronic (3) Hypertension Assessment & Plan: lisinopril 40mg QD Status: Chronic (4) DVT prophylaxis Assessment & Plan: compression stockings. Status: Acute
[2016-09-23] MEDS ORDERED: Lidocaine 2% w Epi 1:100,000 Inj IJ ONE (16:06)
[2016-09-23] MEDS ORDERED: Bacitracin Ointment 30 GM TUBE ONE (16:06)
[2016-09-23] MEDS ORDERED: Lidocaine 1% Inj (20ml) ONE (16:06)
[2016-09-23] MEDS ORDERED: Bupivacaine 0.5% Inj(30mL) ONE (16:06)
[2016-09-23] MEDS ORDERED: Sodium Chloride 0.9% 1,000 ML IV ONE (17:35)
[2016-09-23] MEDS ORDERED: Propofol 10 mg/ml Inj (20 ML) ONE (17:35)
[2016-09-23] MEDS ORDERED: Midazolam 2 MG/2 ML VIAL ONE (17:36)
[2016-09-23] MEDS ORDERED: Lactated Ringer's 1,000 ML IV ONE (18:10)
--- NOTE | 2016-09-23 18:14 | PCM.SURG1 ---
Surgeon's Initial Post Op Note - Surgeon's Notes Surgeon: Kary Driver Service Technician: Baljeet PGY3 Type of Anesthesia: IV Sedation, Local Pre-Operative Diagnosis: L breast abscess Operative Findings: pus, retro-areolar mass Post-Operative Diagnosis: same Operation Performed: Incision and drainage of breast abscess, debridement of cavity wall, and bx of breast tissue Specimen/Specimens Removed: cultures and breast tissue Estimated Blood Loss: EBL {In ML}: 10 Blood Products Given: N/A Drains Used: No Drains Post-Op Condition: Good Date of Surgery/Procedure: 09/23/16 Time of Surgery/Procedure: 18:14
[2016-09-23] MEDS ORDERED: Oxycodone/Acetaminophen 5/325 mg Tab PO PRN (18:15)
[2016-09-23] MEDS ORDERED: Lactated Ringer's 1,000 ML IV SCH (18:16)
[2016-09-23] MEDS ORDERED: HYDROmorphone 0.5 mg/0.5 ml ISec IVP PRN (18:16)
[2016-09-23 20:55] VITALS: RESP 20
[2016-09-24] MEDS: Piperacillin/Tazobact 3.375 GM in Sodium Chloride 0.9% 100 ML IVPB SCH (05:29)
[2016-09-24 06:46] LABS: HEMATOCRIT 37.7 % (34.0-47.0); MEAN CELL VOLUME 87.3 fl (81.0-99.0); MEAN CORPUSCULAR HEMOGLOBIN 28.8 pg (27.0-31.0); RED CELL DISTRIBUTION WIDTH 13.4 % (11.5-14.5); WHITE BLOOD COUNT 6.7 K/uL (4.8-10.8)
[2016-09-24] MEDS: Insulin Regular 100 units/ml SC SCH ×2 (07:42→11:38)
[2016-09-24 08:19] VITALS: BP 137/72; PULSE 74; TEMP 97.8; O2SAT 98
--- NOTE | 2016-09-24 09:53 | CP.PCM.PN ---
Subjective - Date & Time of Evaluation Date of Evaluation: 09/24/16 Time of Evaluation: 09:51 - Subjective Subjective: Surgery: Dr. Preston Pt seen and examined. Resting comfortably in bed. Pain improved. No F/C Objective - Vital Signs/Intake and Output Vital Signs (last 24 hours): Temp Pulse Resp BP Pulse Ox 97.8 F 74 20 137/72 98 09/24/16 08:18 09/24/16 08:49 09/24/16 08:18 09/24/16 08:49 09/24/16 08:18 - Medications Medications: Current Medications Acetaminophen (Tylenol 325mg Tab) 650 mg PO Q4 PRN PRN Reason: Headache Last Admin: 09/22/16 19:50 Dose: 650 mg Aspirin (Ecotrin) 81 mg PO DAILY [facility] Piperacillin Sod/Tazobactam (Sod 3.375 gm/ Sodium Chloride) 100 mls @ 100 mls/ hr IVPB Q8@0600,1400,2200 [facility] Last Admin: 09/24/16 05:29 Dose: 100 mls/hr Vancomycin HCl 1 gm/ Sodium (Chloride) 250 mls @ 166.667 mls/hr IVPB Q12 [facility] Last Admin: 09/24/16 08:26 Dose: 166.667 mls/hr Lactated Ringer's (Lactated Ringer's) 1,000 mls @ 75 mls/hr IV .[id number] [facility]S [facility] Last Admin: 09/24/16 08:59 Dose: 75 mls/hr Insulin Human Regular (Humulin R) 0 units SC ACHS [facility] Last Admin: 09/24/16 07:42 Dose: 9 u Lisinopril (Zestril) 40 mg PO DAILY [facility] Last Admin: 09/24/16 08:49 Dose: 40 mg Metformin HCl (Glucophage) 1,000 mg PO BID [facility] Last Admin: 09/24/16 08:47 Dose: 1,000 mg Oxycodone/Acetaminophen (Percocet 5/325 Mg Tab) 1 tab PO Q6 PRN PRN Reason: Pain, moderate (4-7) Stop: 09/26/16 18:16 Pioglitazone HCl (Actos) 30 mg PO DAILY [facility] Last Admin: 09/23/16 08:42 Dose: Not Given Sitagliptin Phosphate (Januvia) 100 mg PO DAILY [facility] Last Admin: 09/24/16 08:47 Dose: 100 mg - Labs Labs: 09/24/16 06:10 PT 10.3 Seconds (9.8-13.1) 09/21/16 19:25 INR 0.9 (0.9-1.2) 09/21/16 19:25 APTT 28.9 Seconds (25.6-37.1) 09/21/16 19:25 - Constitutional Appears: Non-toxic, No Acute Distress - Head Exam Head Exam: ATRAUMATIC, NORMOCEPHALIC - Eye Exam Eye Exam: EOMI - ENT Exam ENT Exam: Mucous Membranes Moist - Neck Exam Neck Exam: Full ROM - Respiratory Exam Respiratory Exam: NORMAL BREATHING PATTERN. absent: Accessory Muscle Use, Respiratory Distress - GI/Abdominal Exam GI & Abdominal Exam: Soft. absent: Distended, Firm, Guarding, Rigid, Tenderness - Neurological Exam Neurological Exam: Alert, Awake, Oriented x3 - Skin Additional comments: L breast: s/p I&D, decreased erythema and induration, mildly tender to palpation , no expressable drainage Assessment and Plan - Assessment and Plan (Free Text) Assessment: 56F w. L breast abscess, s/p I&D -Pt is clear for D/C from surgical standpoint -Pt instructed to return to ED tomorrow afternoon for packing change -Abx per ID recommendations -d/w attending Zemaitis PGY2
--- NOTE | 2016-09-24 10:23 | CP.PCM.DIS ---
Provider - Provider Date of Admission: 09/24/16 02:00 Attending physician: Rudy Rice MD Time Spent in preparation of Discharge (in minutes): 35 Diagnosis - Discharge Diagnosis (1) Cellulitis of breast Status: Acute Hospital Course - Lab Results Lab Results: Most Recent Lab Values WBC 6.7 K/uL (4.8-10.8) 09/24/16 06:10 RBC 4.31 Mil/uL (3.80-5.20) 09/24/16 06:10 Hgb 12.4 g/dL (12.0-16.0) 09/24/16 06:10 Hct 37.7 % (34.0-47.0) 09/24/16 06:10 MCV 87.3 fl (81.0-99.0) 09/24/16 06:10 MCH 28.8 pg (27.0-31.0) 09/24/16 06:10 MCHC 33.0 g/dL (33.0-37.0) 09/24/16 06:10 RDW 13.4 % (11.5-14.5) 09/24/16 06:10 Plt Count 223 K/uL (130-400) 09/24/16 06:10 MPV 10.2 fl (7.2-11.7) 09/21/16 19:25 Neut % (Auto) 56.0 % (50.0-75.0) 09/21/16 19:25 Lymph % (Auto) 33.5 % (20.0-40.0) 09/21/16 19:25 [place] % (Auto) 7.1 % (0.0-10.0) 09/21/16 19:25 Eos % (Auto) 2.7 % (0.0-4.0) 09/21/16 19:25 Baso % (Auto) 0.7 % (0.0-2.0) 09/21/16 19:25 Neut # 4.0 K/uL (1.8-7.0) 09/21/16 19:25 Lymph # 2.4 K/uL (1.0-4.3) 09/21/16 19:25 [place] # 0.5 K/uL (0.0-0.8) 09/21/16 19:25 Eos # 0.2 K/uL (0.0-0.7) 09/21/16 19:25 Baso # 0.0 K/uL (0.0-0.2) 09/21/16 19:25 ESR 12 mm/hr (0-30) 09/23/16 05:40 PT 10.3 Seconds (9.8-13.1) 09/21/16 19:25 INR 0.9 (0.9-1.2) 09/21/16 19:25 APTT 28.9 Seconds (25.6-37.1) 09/21/16 19:25 Sodium 136 mmol/l (132-148) 09/23/16 05:40 Potassium 3.7 MMOL/L (3.6-5.0) 09/23/16 05:40 Chloride 105 mmol/L (98-107) 09/23/16 05:40 Carbon Dioxide 25 mmol/L (22-30) 09/23/16 05:40 Anion Gap 10 (10-20) 09/23/16 05:40 BUN 12 mg/dl (7-17) 09/23/16 05:40 Creatinine 0.5 mg/dL (0.7-1.2) L 09/23/16 05:40 Est GFR ( Amer) > 60 09/23/16 05:40 Est GFR (Non-Af Amer) > 60 09/23/16 05:40 POC Glucose (mg/dL) 277 mg/dL (65-110) H 09/23/16 22:14 Random Glucose 146 mg/dL (65-105) H 09/23/16 05:40 Calcium 8.4 mg/dL (8.4-10.2) 09/23/16 05:40 Total Bilirubin 0.8 mg/dl (0.2-1.3) 09/22/16 05:35 AST 24 U/L (14-36) 09/22/16 05:35 ALT 35 U/L (9-52) 09/22/16 05:35 Alkaline Phosphatase 115 U/L (38-126) 09/22/16 05:35 Total Protein 6.1 G/DL (6.3-8.2) L 09/22/16 05:35 Albumin 3.2 g/dL (3.5-5.0) L 09/22/16 05:35 Globulin 2.9 gm/dL (2.2-3.9) 09/22/16 05:35 Albumin/Globulin Ratio 1.1 (1.0-2.1) 09/22/16 05:35 Procalcitonin < 0.05 NG/ML (0.19-0.49) L 09/22/16 20:30 Urine Color Yellow (YELLOW) 09/21/16 20:09 Urine Clarity Clear (Clear) 09/21/16 20:09 Urine pH 5.5 (5.0-8.0) 09/21/16 20:09 Ur Specific [place] 1.010 (1.003-1.030) 09/21/16 20:09 Urine Protein Negative mg/dL (NEGATIVE) 09/21/16 20:09 Urine Glucose (UA) >1000 mg/dL (Normal) 09/21/16 20:09 Urine Ketones Negative mg/dL (NEGATIVE) 09/21/16 20:09 Urine Blood Negative (NEGATIVE) 09/21/16 20:09 Urine Nitrate Negative (NEGATIVE) 09/21/16 20:09 Urine Bilirubin Negative (NEGATIVE) 09/21/16 20:09 Urine Urobilinogen 0.2 mg/dL (0.2-1.0) 09/21/16 20:09 Ur Leukocyte Esterase Trace [place]/uL (Negative) H 09/21/16 20:09 Urine RBC (Auto) < 1 /hpf (0-3) 09/21/16 20:09 Urine Microscopic WBC 12 /hpf (0-5) H 09/21/16 20:09 Ur Squamous Epith Cells 15 /hpf (0-5) H 09/21/16 20:09 Urine Bacteria Few (<OCC) H 09/21/16 20:09 Blood Type O POSITIVE 09/21/16 19:25 Antibody Screen Negative 09/21/16 19:25 BBK History Checked No verified bt 09/21/16 19:25 - Hospital Course Hospital Course: H&P: 56 y/o female admitted for swelling and tenderness of the left breast for almost three weeks. hx of DM 2 uncontrolled and HTN. She had a normal mammogram last year. Claims that swelling developed into a lump and noted surrounding erythema hence sought medical evaluation at the ER. Initial breast US showed possible abscess/ cellulitis. HOSPITAL COURSE: Pt was admitted for further eval of left breast cellulitis/abscess. Surgery and ID were consulted. ID started the pt on IV Vancomycin as well as Zosyn. Pt went for I&D on 09/23 with surgery and tolerated the procedure well. Pt was started on 100mg Januvia and 40mg Lisinopril as well as Pioglitazone 30mg for DM and HTN. After an uneventful stay, pt was discharged in stable condition. Orders: Surgery f/u on 09/29 F/u with Dr. Rice within the week Return on ER on 09/25 for packing change ABx on D/C: Bactrim DS 1 tab PO BID x 10 days as per ID. Discharge Exam - Head Exam Head Exam: ATRAUMATIC, NORMOCEPHALIC - Eye Exam Eye Exam: EOMI Pupil Exam: PERRL - ENT Exam ENT Exam: Mucous Membranes Moist - Neck Exam Neck exam: Full Rom - Respiratory Exam Respiratory Exam: Clear to PA & Lateral, NORMAL BREATHING PATTERN, UNREMARKABLE - Cardiovascular Exam Cardiovascular Exam: REGULAR RHYTHM - GI/Abdominal Exam GI & Abdominal Exam: Normal Bowel Sounds, Unremarkable - Extremities Exam Extremities exam: normal inspection - Neurological Exam Neurological exam: Alert, CN II-XII Intact, Oriented x3 - Psychiatric Exam Psychiatric exam: Normal Affect, Normal Mood - Additional Findings Additional findings: left breast: s/p I&D POD#1, mild tenderness to palpation, bandage C/D/I. Discharge Plan - Follow Up Plan Condition: STABLE Disposition: HOME/ ROUTINE Instructions: Breast Abscess Drainage (DC), Diabetes Mellitus Type 2 in Adults (GEN), How To Wash Your Hands (GEN), Fall Prevention (GEN)
--- NOTE | 2016-09-29 10:59 | OP ---
PROCEDURE DATE: 09/23/2016 PREOPERATIVE DIAGNOSES: Left breast abscess and edematous phlegmonous mass. POSTOPERATIVE DIAGNOSES: Left breast abscess and edematous phlegmonous mass. PROCEDURE DONE: 1. Incision and drainage of left breast abscess. 2. Debridement of the left breast wound of the abscess cavity. 3. Excisional biopsy of left breast retro-areolar hard phlegmonous mass. SURGEON: Lewis Preston MD DEMURRAGE AGENT: Gerard Delong TYPE OF ANESTHESIA: Local anesthesia plus sedation. ESTIMATED BLOOD LOSS: Around 50 mL. DRAIN: None. PATHOLOGY: 1. Pus was sent for the culture and sensitivity. 2. Debrided abscess cavity wound was sent for pathology. 3. Retro-areolar thickened phlegmonous breast tissue was sent for the pathology. COMPLICATIONS: None. INTRAOPERATIVE FINDINGS: The patient had cellulitis of left breast mass with centralized abscess and approximately 10 mL of pus was drained and there was a retro-areolar thick, hard mass that was excised and the cavity was also debrided on intraoperative test. DESCRIPTION OF PROCEDURE: This is a 56-year-old female who was diagnosed with left breast cellulitis since last 3 weeks and patient had a small collection of abscess at the lower left breast and the patient was consented for incision and drainage of the abscess as well as the debridement, brought to the OR, and placed supine on the operating table. After induction of the anesthesia, the left breast was prepped and draped, local anesthesia was injected, and the curvilinear incision was made surroundings the areola and the abscess cavity was entered, approximately 10 mL of pus was drained and the cavity was debrided of slough and necrotic tissue. After that, the cavity was palpated and the patient found to have a extremely thickened, hard retro-areolar mass, that mass was also excised and was sent off the table for the pathology to rule out malignancy and after that cavity was packed, that there was a proper hemostasis in each and every part of the procedure and after proper dressing, the patient was reversed of sedation, sent to the postanesthesia care unit in stable condition. There was no apparent complication. Lewis Preston MD cc:
== END 2016-09-24 13:23 | disposition home or self-care (01) ==
LOC: H.ER 17:09 → H.EROBSV 18:28 → H.ERHOLD 22:02 → H.PEDS 09-22 12:30 → INTOOBSV 09-24 02:00 → OBSVTOIN 09-24 02:00
PROVIDERS: ADMIT Family Medicine; ATTEND Family Medicine
DX: N61.1 Abscess of the breast and nipple (principal); E11.65 Type 2 diabetes mellitus with hyperglycemia; I10 Essential (primary) hypertension; N63 Unspecified lump in breast
CPT/HCPCS: 19020; 19101; 36415; 71020; 76642; 80048; 80053; 81003; 82948; 84145; 85025; 85027; 85610; 85651; 85730; 86850; 86900; 87040; 87070; 87086; 87181; 88304; 88305; 93005; 96361; 96365; 96375; 99285; G0378; J0690; J1885; J2250; J2405; J2543; J2704; J3010; J7030; J7040; J7120

== ENCOUNTER 2016-09-25 13:48 | Emergency (ER) | payer MEDICAID ==
[2016-09-25 14:03] VITALS: BP 162/91; PULSE 90; RESP 18; TEMP 98.2; O2SAT 100
--- NOTE | 2016-09-25 15:40 | ED PDOC ---
HPI: Wound Care - HPI Time Seen by Provider: 09/25/16 14:49 Chief Complaint (Nursing): Wound Check Chief Complaint (Provider): breast wound check History Per: Patient Exam Limitations: no limitations Onset/Duration Of Symptoms: Days (x2) Current Symptoms Are (Timing): Still Present Additional Complaint(s): Becca Barbour is a 56 year old female who presents to the emergency department for a wound check associated with pain status post left breast incision and drainage done yesterday while she was admitted to the hospital. Denies any fever , chills, or active drainage. Past Medical History Reviewed: Historical Data, Nursing Documentation, Vital Signs Vital Signs: Last Vital Signs Temp 98.2 F 09/25/16 13:59 Pulse 90 09/25/16 13:59 Resp 18 09/25/16 13:59 BP 162/91 H 09/25/16 13:59 Pulse Ox 100 09/25/16 13:59 - Medical History PMH: HTN - Surgical History Surgical History: - Family History Family History: States: Unknown Family Hx - Social History Current smoker - smoking cessation education provided: No Alcohol: None Drugs: Denies - Home Medications Home Medications: Ambulatory Orders Medication Instructions Recorded Aspirin [Ecotrin] 81 mg PO DAILY #0 tabec 06/28/15 Lisinopril/Hydrochlorothiazide 1 tab PO DAILY #0 tablet 06/28/15 [Lisinopril-Hctz 20-25 mg Tab] MetFORMIN [glucoPHAGE] 1,000 mg PO BID #0 tab 06/28/15 SITagliptin [Januvia] 50 mg PO DAILY #0 tab 06/28/15 - Allergies Allergies/Adverse Reactions: Allergies Allergy/AdvReac Type Severity Reaction Status Date / Time No Known Allergies Allergy Verified 06/27/15 17:16 Review of Systems ROS Statement: Except As Marked, All Systems Reviewed And Found Negative Constitutional: Negative for: Fever, Chills, Other (active drainage) Skin: Positive for: Other (left breast wound) Physical Exam - Reviewed Vital Signs Reviewed: Yes - Physical Exam Appears: Positive for: Well, Non-toxic, No Acute Distress Head Exam: Positive for: ATRAUMATIC, NORMAL INSPECTION, NORMOCEPHALIC Neck: Positive for: Normal, Painless ROM Cardiovascular/Chest: Positive for: Other (mild pain to left areola). Negative for: Chest Non Tender Neurologic/Psych: Positive for: Alert, professional caster II-XII, Oriented - ECG O2 Sat by Pulse Oximetry: 100 (RA) Pulse Ox Interpretation: Normal Medical Decision Making Medical Decision Making: Initial Impression: Wound check S/P left breast I&D Initial Plan: * Abscess to be drained by surgical residents Time: 15:48 --Surgical residents came saw pt and examined wound and replaced packing of wound. Advised patient to follow up at [facility] on 09/27/16 for removal of packing and re-eval and f.u with surgery on Wednesday. . Scribe Attestation: Documented by Gina Carcamo, acting as a scribe for Magdalena Cortes PA-C. Provider Scribe Attestation: All medical record entries made by the Scribe were at my direction and personally dictated by me. I have reviewed the chart and agree that the record accurately reflects my personal performance of the history, physical exam, medical decision making, and the department course for this patient. I have also personally directed, reviewed, and agree with the discharge instructions and disposition. Disposition - Clinical Impression Clinical Impression: Encounter for wound re-check - Patient ED Disposition Is Patient to be Admitted: No Counseled Patient/Family Regarding: Need For Followup - Disposition Disposition: Routine/Home Disposition Time: 19:20 Condition: STABLE Additional Instructions: you will need to have your wound checked on wednesday. [facility] and tell them you were instructed to have removal of th packing in your breast by a surgical supervisor. [facility]: Address: [place] [address] Hours: Open today Open 24 hours See more hours Usted tendr que tener tijerina herida comprobada el darryn 2016. Por favor, vaya a [facility] y dgales que se le instruy para que la eliminacin de tijerina embalaje en tijerina pecho por un residente quirrgico. Instructions: Chronic Wound Care (ED) Print Language: COLOMBIAN
== END 2016-09-25 16:07 | disposition home or self-care (01) ==
LOC: H.ER 13:48
DX: Z48.00 Encounter for change or removal of nonsurgical wound dressing (principal); I10 Essential (primary) hypertension; Z79.82 Long term (current) use of aspirin; Z79.84 Long term (current) use of oral hypoglycemic drugs

== ENCOUNTER 2016-10-01 13:16 | Emergency (ER) | payer MEDICAID ==
[2016-10-01 13:18] VITALS: BMI 24.3
[2016-10-01 13:29] VITALS: BP 159/70; PULSE 81; RESP 16; TEMP 98.4; O2SAT 98
--- NOTE | 2016-10-01 13:48 | ED PDOC ---
HPI: Wound Care - HPI Time Seen by Provider: 10/01/16 13:37 Chief Complaint (Nursing): Breast Problem Chief Complaint (Provider): breast History Per: Patient Additional Complaint(s): 56yo F in Ed for packing removal from left breast. was seen at [facility] office this wed advised to return to ER for removal of packing and placement of new packing. denies fever chills nausea or vomiting. Past Medical History Reviewed: Historical Data, Nursing Documentation, Vital Signs Vital Signs: Last Vital Signs Temp 98.4 F 10/01/16 13:21 Pulse 81 10/01/16 13:21 Resp 16 10/01/16 13:21 BP 159/70 H 10/01/16 13:21 Pulse Ox 98 10/01/16 13:21 - Medical History PMH: Diabetes (NIDDM), HTN - Surgical History Surgical History: - Family History Family History: States: Unknown Family Hx - Home Medications Home Medications: Ambulatory Orders Medication Instructions Recorded Aspirin [Ecotrin] 81 mg PO DAILY #0 tabec 06/28/15 Lisinopril/Hydrochlorothiazide 1 tab PO DAILY #0 tablet 06/28/15 [Lisinopril-Hctz 20-25 mg Tab] MetFORMIN [glucoPHAGE] 1,000 mg PO BID #0 tab 06/28/15 SITagliptin [Januvia] 50 mg PO DAILY #0 tab 06/28/15 - Allergies Allergies/Adverse Reactions: Allergies Allergy/AdvReac Type Severity Reaction Status Date / Time No Known Allergies Allergy Verified 09/27/16 13:37 Review of Systems ROS Statement: Except As Marked, All Systems Reviewed And Found Negative Skin: Positive for: Other (breast: left packing in place ) Physical Exam - Reviewed Nursing Documentation Reviewed: Yes Vital Signs Reviewed: Yes - Physical Exam Appears: Positive for: Well, Non-toxic, No Acute Distress Skin: Positive for: Normal Color, Warm, Rash (left breast packing in place. ) Cardiovascular/Chest: Positive for: Regular Rate, Rhythm Respiratory: Positive for: CNT, Normal Breath Sounds Neurologic/Psych: Positive for: Alert, Oriented - ECG O2 Sat by Pulse Oximetry: 98 Medical Decision Making Medical Decision Making: packing removed no erythema mild induration no drainage. packing replaced 1/4 inc packing placed.pt will be f/u with janet in office. Disposition - Clinical Impression Clinical Impression: Change of dressing - Patient ED Disposition Is Patient to be Admitted: No Counseled Patient/Family Regarding: Need For Followup - Disposition Disposition: Routine/Home Disposition Time: 13:54 Condition: STABLE Instructions: Chronic Wound Care (ED)
== END 2016-10-01 14:10 | disposition home or self-care (01) ==
LOC: H.ER 13:16
DX: Z48.00 Encounter for change or removal of nonsurgical wound dressing (principal); E11.9 Type 2 diabetes mellitus without complications; I10 Essential (primary) hypertension; Z79.82 Long term (current) use of aspirin; Z79.84 Long term (current) use of oral hypoglycemic drugs

== ENCOUNTER 2017-04-12 18:18 | Emergency (ER) | payer MEDICAID ==
[2017-04-12 18:18] VITALS: BMI 24.3
[2017-04-12 18:41] VITALS: BP 146/77; PULSE 87; RESP 18; TEMP 98.1; O2SAT 98
--- NOTE | 2017-04-12 20:40 | ED PDOC ---
Upper Extremity Pain/Injury Time Seen by Provider: 04/12/17 20:14 Chief Complaint (Nursing): Upper Extremity Problem/Injury Chief Complaint (Provider): left-sided neck/shoulder/chest pain History Per: Patient, Family History/Exam Limitations: no limitations Onset/Duration Of Symptoms: Days (3 weeks), Waxing/Waning Additional History Per: Patient, Family Additional Complaint(s): 57 y/o female presents for evaluation of intermittent left-sided neck, shoulder , and chest pain x 3 weeks. 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 Patient states pain is worse with movement, and to touch; unrelieved with Aspirin. Patient states the pain is causing her not to be able to sleep, and today at work she was unable to perform her duties due to pain, which prompted ED visit. Denies numbness/ weakness/swelling upper extremities, shortness of breath, palpitations. Past Medical History Reviewed: Historical Data, Nursing Documentation, Vital Signs Vital Signs: Last Vital Signs Temp 98.1 F 04/12/17 18:36 Pulse 87 04/12/17 18:36 Resp 18 04/12/17 18:36 BP 146/77 04/12/17 18:36 Pulse Ox 98 04/12/17 18:36 - Medical History PMH: Diabetes (NIDDM), HTN - Surgical History Surgical History: - Family History Family History: States: Unknown Family Hx - Home Medications Home Medications: Ambulatory Orders Medication Instructions Recorded Aspirin [Ecotrin] 81 mg PO DAILY #0 tabec 06/28/15 Lisinopril/Hydrochlorothiazide 1 tab PO DAILY #0 tablet 06/28/15 [Lisinopril-Hctz 20-25 mg Tab] MetFORMIN [glucoPHAGE] 1,000 mg PO BID #0 tab 06/28/15 SITagliptin [Januvia] 50 mg PO DAILY #0 tab 06/28/15 Cyclobenzaprine [Cyclobenzaprine 10 mg PO BID PRN #14 tab 04/12/17 HCl] Naproxen [Naprosyn] 500 mg PO Q12 PRN #20 tablet 04/12/17 - Allergies Allergies/Adverse Reactions: Allergies Allergy/AdvReac Type Severity Reaction Status Date / Time No Known Allergies Allergy Verified 09/27/16 13:37 Review of Systems ROS Statement: Except As Marked, All Systems Reviewed And Found Negative Cardiovascular: Positive for: Chest Pain Musculoskeletal: Positive for: Neck Pain, Shoulder Pain Physical Exam - Reviewed Nursing Documentation Reviewed: Yes Vital Signs Reviewed: Yes - Physical Exam Appears: Positive for: Well, Non-toxic, No Acute Distress Head Exam: Positive for: ATRAUMATIC, NORMAL INSPECTION, NORMOCEPHALIC Skin: Positive for: Normal Color Eye Exam: Positive for: Normal appearance ENT: Positive for: Normal ENT Inspection Cardiovascular/Chest: Positive for: Regular Rate, Rhythm. Negative for: Chest Non Tender (tender to palpate left anterior chest wall) Respiratory: Positive for: Normal Breath Sounds Pulses-Radial (L): 2+ Pulses-Radial (R): 2+ Gastrointestinal/Abdominal: Positive for: Normal Exam Back: Positive for: Muscle Spasm (left cspine parasinals, left trapezius). Negative for: L CVA Tenderness, R CVA Tenderness, Vertebral Tenderness, Decreased ROM Extremity: Positive for: Normal ROM, Tenderness (anterior left shoulder), Capillary Refill (<2 sec b/l UE). Negative for: Deformity, Swelling Neurologic/Psych: Positive for: Alert, Oriented. Negative for: Motor/Sensory Deficits - ECG ECG: Positive for: Viewed By Me (reviewed by ED attending) ECG Rhythm: Positive for: Sinus Rhythm O2 Sat by Pulse Oximetry: 98 - Other Rad xray cspine X-Ray: Viewed By Me X-Ray Interpretation: no acute findings xray left shoulder X-Ray: Viewed By Me X-Ray Interpretation: no acute findings - Progress ED Course And Treament: xray's, accucheck, ekg, Toradol IM, flexeril PO Patient educated on findings, placed in arm sling for comfort. Rx Naproxen, Flexeril provided. Advised follow up PMD 2-3 days. Ice, warm compresses Return precautions given Disposition - Clinical Impression Clinical Impression: Chest wall pain, Neck pain on left side, Left shoulder pain - Patient ED Disposition Is Patient to be Admitted: No Counseled Patient/Family Regarding: Studies Performed, Diagnosis, Need For Followup, Rx Given - Disposition Disposition: Routine/Home Disposition Time: 22:16 Condition: IMPROVED Prescriptions: Cyclobenzaprine [Cyclobenzaprine HCl] 10 mg PO BID PRN #14 tab PRN Reason: Muscle Spasm Naproxen [Naprosyn] 500 mg PO Q12 PRN #20 tablet PRN Reason: Pain, Moderate (4-7) Instructions: Chest Wall Pain (ED), Arthralgia (ED), Musculoskeletal Pain (ED) Forms: [facility] (Danish), [facility] ED School/Work Excuse Print Language: ALGERIAN
--- NOTE | 2017-04-13 08:32 | CARD ---
APPROVED REPORT EKG Measurement Heart [id number] <Conclusion> Normal sinus rhythm Septal infarct, age undetermined Abnormal ECG
--- NOTE | 2017-04-13 10:39 | RAD ---
PROCEDURE: Cervical Spine Radiographs. HISTORY: Pain. COMPARISON: None. FINDINGS: BONES: Reversal of the anatomic lordosis with kyphosis, mild. No vertebral body fractures identified. DISC SPACES: Disc degenerative changes C4-5, C5-6. Disc space narrowing and anterior non marginal osteophyte formation. SOFT TISSUES: Normal. No prevertebral soft tissue swelling. OTHER FINDINGS: Multilevel uncovertebral hypertrophy. IMPRESSION: No acute findings related to/accounting for the clinical presentation. Additional benign and/or incidental findings described above.
--- NOTE | 2017-04-13 11:21 | RAD ---
PROCEDURE: Radiographs of the Left Shoulder HISTORY: Left shoulder pain COMPARISON: No prior. FINDINGS: BONES: There is no acute displaced fracture or bone destruction. Bone alignment and mineralization are normal. JOINTS: There is mild degenerative osteoarthrosis in the acromioclavicular joint. The glenohumeral joint is normal. SOFT TISSUES: Normal. OTHER FINDINGS: None. IMPRESSION: No acute fracture or dislocation. Mild degenerative osteoarthrosis in the acromioclavicular joint.
== END 2017-04-12 22:30 | disposition home or self-care (01) ==
LOC: H.ER 18:18
DX: R07.89 Other chest pain (principal); M54.2 Cervicalgia; M19.012 Primary osteoarthritis, left shoulder; E11.9 Type 2 diabetes mellitus without complications; I10 Essential (primary) hypertension; Z79.82 Long term (current) use of aspirin; Z79.84 Long term (current) use of oral hypoglycemic drugs
CPT/HCPCS: 72050; 73030; 82948; 93005; 96372; 99281; J1885

== ENCOUNTER 2017-08-31 11:10 | Emergency (ER) | payer MEDICAID ==
[2017-08-31 11:10] VITALS: BMI 24.3
[2017-08-31] MEDS ORDERED: Alum-Mag Hydrox-Simethicone Susp (30 mL) PO ONE (12:38)
[2017-08-31] MEDS ORDERED: Famotidine 40 MG/5 ML PO ONE (12:39)
[2017-08-31 13:54] LABS: BASO % 0.3 % (0.0-2.0); EOS # 0.1 K/uL (0.0-0.7); EOS % 1.6 % (0.0-4.0); HEMOGLOBIN 13.5 g/dL (12.0-16.0); LYMPH # 1.5 K/uL (1.0-4.3); LYMPH % 22.6 % (20.0-40.0); MEAN CELL VOLUME 89.1 fl (81.0-99.0); MEAN CORPUSCULAR HEMOGLOBIN 29.3 pg (27.0-31.0); MEAN CORPUSCULAR HGB CONC 32.8 g/dL (33.0-37.0); MEAN PLATELET VOLUME 10.2 fl (7.2-11.7); MONO # 0.4 K/uL (0.0-0.8); MONO % 5.5 % (0.0-10.0); NEUT # 4.7 K/uL (1.8-7.0); NRBC % 0.1 % (0.0-0.0); RBC 4.61 Mil/uL (3.80-5.20); RED CELL DISTRIBUTION WIDTH 13.7 % (11.5-14.5); WHITE BLOOD COUNT 6.7 K/uL (4.8-10.8)
[2017-08-31 14:04] LABS: ALB/GLOB RATIO 1.1 (1.0-2.1); ALBUMIN 3.7 g/dL (3.5-5.0); ALT/SGPT 35 U/L (9-52); AST/SGOT 18 U/L (14-36); BLOOD UREA NITROGEN 17 mg/dl (7-17); CALCIUM 9.5 mg/dL (8.4-10.2); GFR AFRICAN-AMERICAN > 60; GFR NON-AFRICAN AMERICAN > 60; LIPASE 301 U/L (23-300)
[2017-08-31] MEDS ORDERED: Sodium Chloride 0.9% 1,000 ML IV STA (14:18)
[2017-08-31] MEDS ORDERED: Insulin Regular 100 units/ml IV STA (14:18)
--- NOTE | 2017-08-31 14:25 | ED PDOC ---
HPI: Abdomen Chief Complaint (Provider): Abdominal pain History Per: Patient History/Exam Limitations: no limitations Onset/Duration Of Symptoms: Days, Gradual, Worse Since (yesterday) Outside of [place] travel?: No Current Symptoms Are (Timing): Still Present Pain Scale Rating Of: 7 Location Of Pain/Discomfort: RUQ, Epigastric Quality Of Discomfort: Burning Associated Symptoms: denies: Fever, Chills, Nausea, Vomiting, Diarrhea, Back Pain, Chest Pain, Constipation, Urinary Symptoms Last Bowel Movement: Yesterday Additional History Per: Patient <Rebecca Sadler - Last Filed: 08/31/17 17:05> <Rene Dacosta - Last Filed: 09/06/17 10:53> Chief Complaint (Nursing): Abdominal Pain Additional Complaint(s): 57 y/o female with PMHx of DM, HTN presents to ED complaining of intermittent abdominal pain for 2-3 weeks. Patient states the abdominal pain has been intermittent, burning sensation, sometimes feels like colic like pain, no triggers by food, alleviated with Nexium, except for today, that she took nexium , and did not get any relief. Denies fevers, chills, nausea, vomiting. Has been passing gasses, and last bowel movement was yesterday, however reports a h/o constipation for 3-4 months. Denies alternating diarrheas, blood in urine or stools, black stools, or urinary symptoms. Also complaining of chronic left shoulder pain. PMD: Janny Smith Surgical Hx: Breast lump removal, Ectopic , 1 Allergies: NKDA (Rebecca Sadler) Supervising Attending Note - Supervising Attending Note The Documented history was done by the: Physician Modeling Instructor, Attending Physician The documented physical exam was done by the: Physician Modeling Instructor, Attending Physician The documented procedures were done by the: Physician Modeling Instructor, Attending Physician - Attestation: I have personally seen and examined this patient.: Yes I have fully participated in the care of the patient.: Yes I have reviewed all pertinent clinical information: Yes <Rene Dacosta - Last Filed: 09/06/17 10:53> Past Medical History - Medical History PMH: Diabetes (NIDDM), HTN - Surgical History Surgical History: - Family History Family History: States: Unknown Family Hx - Social History Current smoker - smoking cessation education provided: No Ex-Smoker (has not smoked in the last 12 months): No Alcohol: None Drugs: Denies <Rebecca Sadler - Last Filed: 08/31/17 17:05> Reviewed: Historical Data, Nursing Documentation, Vital Signs <Rene Dacosta - Last Filed: 09/06/17 10:53> Vital Signs: Last Vital Signs Temp 98.2 F 08/31/17 15:00 Pulse 83 08/31/17 17:58 Resp 20 08/31/17 17:58 BP 145/86 08/31/17 17:58 Pulse Ox 99 08/31/17 17:58 - Home Medications Home Medications: Ambulatory Orders Medication Instructions Recorded Aspirin [Ecotrin] 81 mg PO DAILY #0 tabec 06/28/15 Lisinopril/Hydrochlorothiazide 1 tab PO DAILY #0 tablet 06/28/15 [Lisinopril-Hctz 20-25 mg Tab] MetFORMIN [glucoPHAGE] 1,000 mg PO BID #0 tab 06/28/15 SITagliptin [Januvia] 50 mg PO DAILY #0 tab 06/28/15 Cyclobenzaprine [Cyclobenzaprine 10 mg PO BID PRN #14 tab 04/12/17 HCl] Naproxen [Naprosyn] 500 mg PO Q12 PRN #20 tablet 04/12/17 Acetaminophen [Tylenol Extra 500 mg PO Q6 PRN #20 tab 08/31/17 Strength] Esomeprazole Magnesium [Nexium] 20 mg PO DAILY #30 capsule. 08/31/17 SITagliptin [Januvia] 100 mg PO DAILY #30 tab 08/31/17 - Allergies Allergies/Adverse Reactions: Allergies Allergy/AdvReac Type Severity Reaction Status Date / Time No Known Allergies Allergy Verified 09/27/16 13:37 Review of Systems ROS Statement: Except As Marked, All Systems Reviewed And Found Negative (as per HPI) <Rebecca Sadler - Last Filed: 08/31/17 17:05> Physical Exam - Reviewed Nursing Documentation Reviewed: Yes Vital Signs Reviewed: Yes - Physical Exam Appears: Positive for: Non-toxic, No Acute Distress Head Exam: Positive for: ATRAUMATIC, NORMOCEPHALIC Skin: Positive for: Normal Color, Warm, Dry Eye Exam: Positive for: Normal appearance Cardiovascular/Chest: Positive for: Regular Rate, Rhythm. Negative for: Chest Non Tender, Edema Respiratory: Positive for: Normal Breath Sounds. Negative for: Decreased Breath Sounds, Accessory Muscle Use, Crackles, Rales, Rhonchi, Wheezing, Respiratory Distress Gastrointestinal/Abdominal: Positive for: Bowel Sounds (present), Soft, Tenderness (diffuse tenderness of epigastrium, RUQ, and mesogastrium). Negative for: Mass, Distended, Guarding, Rebound Back: Positive for: Normal Inspection. Negative for: L CVA Tenderness, R CVA Tenderness Neurologic/Psych: Positive for: Alert, Oriented <Rebecca Sadler - Last Filed: 08/31/17 17:05> - Laboratory Results Result Diagrams: 08/31/17 13:45 08/31/17 13:45 - ECG O2 Sat by Pulse Oximetry: 100 <Rebecca Sadler - Last Filed: 08/31/17 17:05> - Laboratory Results Result Diagrams: 08/31/17 13:45 08/31/17 13:45 <Rene Dacosta - Last Filed: 09/06/17 10:53> Medical Decision Making <Rebecca Sadler - Last Filed: 08/31/17 17:05> <Rene Dacosta - Last Filed: 09/06/17 10:53> Medical Decision Making: Abdominal pain -CBC, CMP, Lipase -UA -GI cocktail with Maalox, Lidocaine viscous, and Pepcid -Abdominal US -case discussed with Dr. Dacosta left shoulder pain -chronic -x ray done in the past reported OA of AC joint Can take Tylenol for chronic pain, Avoid NSAIDs for pain control Re-evaluation Noted BSL elevated 600 mg/dl -IV fluids -ABG -Insulin regular 8 units IV once -re-check BSL Abd US reported as IMPRESSION: No acute findings related to/accounting for the clinical presentation. Re-evaluation patient feels better after GI cocktail could be 2/2 Gastritis vs GERD -BSL improved to 311 -ABG unremarkable -stable for DC with recommended outpatient f/u with PMD for better diabetic control. F/u with GI and Ortho specialist. Can take Nexium 20 mg PO daily Noted Hyperglycemia in ER most likely 2/2 uncontrolled DM, Januvia was increased from 50 mg to 100 mg daily, GFR >60, normal creatinine Can take Tylenol for chronic pain, Avoid NSAIDs for pain control case discussed with Dr. Dacosta (Rebecca Sadler) Disposition - Patient ED Disposition Is Patient to be Admitted: No Discussed With : Rene Dacosta - Disposition Disposition: Routine/Home Disposition Time: 16:41 <Rebecca Sadler - Last Filed: 08/31/17 17:05> <Rene Dacosta - Last Filed: 09/06/17 10:53> - Clinical Impression Clinical Impression: Abdominal pain, Hyperglycemia, Shoulder pain, left - Disposition Referrals: [facility] [Outside] Eliane Mendez MD [Medical Doctor] - Miguel Ervin MD [Staff Provider] - Condition: GOOD Additional Instructions: Take your medications as instructed. Follow up with your PCP in 2-3 days. Prescriptions: Acetaminophen [Tylenol Extra Strength] 500 mg PO Q6 PRN #20 tab PRN Reason: Pain, Moderate (4-7) Esomeprazole Magnesium [Nexium] 20 mg PO DAILY #30 capsule. SITagliptin [Januvia] 100 mg PO DAILY #30 tab Instructions: Shoulder Sprain, Gastritis, Type 2 Diabetes, Diabetes Diet , Hyperglycemia, Adult (DC) Print Language: FRENCH
[2017-08-31] MEDS ORDERED: Alum-Mag Hydrox-Simethicone Susp (30 mL) ONE (14:49)
[2017-08-31] MEDS ORDERED: Insulin Regular 100 units/ml ONE (14:50)
[2017-08-31 14:55] LABS: SQUAMOUS EPITHIAL 2 /hpf (0-5); URINE BILIRUBIN NEGATIVE (NEGATIVE); URINE BLOOD NEGATIVE (NEGATIVE); URINE CLARITY SLIGHTY-CLOUDY (Clear); URINE COLOR YELLOW (YELLOW); URINE GLUCOSE (UA) >=500 mg/dL (Normal); URINE LEUKOCYTE ESTERASE TRACE Leu/uL (Negative); URINE PROTEIN NEGATIVE (NEGATIVE); URINE UROBILINOGEN 0.2-1.0 mg/dL (0.2-1.0)
[2017-08-31 15:12] VITALS: PULSE 83; TEMP 98.2
--- NOTE | 2017-08-31 15:15 | US ---
HISTORY: Epigastric/RUQ pain COMPARISON: None. TECHNIQUE: Sonographic evaluation of the abdomen. FINDINGS: LIVER: Measures 11.3 cm. Patent portal vein. Portal venous flow: Hepatopetal. Unremarkable echogenicity of the liver parenchyma. No mass. No intrahepatic bile duct dilatation. GALLBLADDER: 2 x 4 mm polyp. No gallstones identified COMMON BILE DUCT: Measures 3.7 mm. No stones. No dilatation. PANCREAS: Unremarkable as visualized. No mass. No ductal dilatation. RIGHT KIDNEY: Measures 4 x 5.1 x 12.0cm. Normal echogenicity. No calculus, mass, or hydronephrosis. LEFT KIDNEY: Measures 6.4 x 5.8 x 10.9cm. Normal echogenicity. No calculus, mass, or hydronephrosis. SPLEEN: Normal in size and contour. No mass. AORTA: No aneurysmal dilatation. IVC: Unremarkable. OTHER FINDINGS: None. IMPRESSION: No acute findings related to/accounting for the clinical presentation. Additional benign and/or incidental findings described above.
[2017-08-31 15:41] LABS: ABG ALLEN TEST YES; ARTERIAL BLOOD GAS HCO3 24.6 mmol/L (21-28); ARTERIAL BLOOD GAS HEMOGLOBIN 12.6 g/dL (11.7-17.4); ARTERIAL BLOOD GAS O2 CAPACITY 17.1 mL/dL (16-24); ARTERIAL BLOOD GAS O2 CONTENT 17.1 ML/dL (15-23); ARTERIAL BLOOD GAS PCO2 42 mm/Hg (35-45); ARTERIAL BLOOD GAS PH 7.38 (7.35-7.45); ARTERIAL BLOOD GAS PO2 96 mm/Hg (80-100); ARTERIAL BLOOD GAS TCO2 26.1 mmol/L (22-28)
[2017-08-31 18:17] VITALS: BP 145/86; RESP 20; O2SAT 99
--- NOTE | 2017-09-01 09:39 | CARD ---
APPROVED REPORT EKG Measurement Heart [id number] <Conclusion> Normal sinus rhythm Septal infarct, age undetermined Abnormal ECG
== END 2017-08-31 17:45 | disposition home or self-care (01) ==
LOC: H.ER 11:10
DX: R10.13 Epigastric pain (principal); E11.65 Type 2 diabetes mellitus with hyperglycemia; M25.512 Pain in left shoulder; I10 Essential (primary) hypertension; Z79.82 Long term (current) use of aspirin; Z79.84 Long term (current) use of oral hypoglycemic drugs
CPT/HCPCS: 36600; 76700; 80053; 81003; 82803; 82948; 83690; 85025; 93005; 99284; J7030

== ENCOUNTER 2018-02-07 10:32 | Emergency (ER) | payer MEDICAID ==
[2018-02-07 10:32] VITALS: BMI 24.3
--- NOTE | 2018-02-07 11:26 | ED PDOC ---
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 denies: Fever, Chills, Nausea, Vomiting, Diarrhea Last Bowel Movement: Days Ago (x6) Additional Complaint(s): Becca Barbour is a 58 year old female, with a past medical history of diabetes, who presents to the emergency department complaining of constipation onset for x6 days. Patient states she had diarrhea one week ago, she took Loperamide and now she hasn't had a bowel movement since then. She took Miralax and Colace without relief of symptoms. Patient is also complaining of some lower abdominal pain but denies any fever, chills, nausea or vomit. No further medical com plaints. PMD: None provided. Past Medical History Reviewed: Historical Data, Nursing Documentation, Vital Signs Vital Signs: Last Vital Signs Temp 98.1 F 02/07/18 10:42 Pulse 78 02/07/18 10:42 Resp 19 02/07/18 10:42 BP 185/99 H 02/07/18 10:42 Pulse Ox 98 02/07/18 10:42 - Medical History PMH: Diabetes (NIDDM), HTN - Surgical History Surgical History: Other surgeries: oopherectomy in the left due to ectopic - Family History Family History: States: Unknown Family Hx - Home Medications Home Medications: Ambulatory Orders Medication Instructions Recorded Aspirin [Ecotrin] 81 mg PO DAILY #0 tabec 06/28/15 Lisinopril/Hydrochlorothiazide 1 tab PO DAILY #0 tablet 06/28/15 [Lisinopril-Hctz 20-25 mg Tab] MetFORMIN [glucoPHAGE] 1,000 mg PO BID #0 tab 06/28/15 SITagliptin [Januvia] 50 mg PO DAILY #0 tab 06/28/15 Cyclobenzaprine [Cyclobenzaprine 10 mg PO BID PRN #14 tab 04/12/17 HCl] Naproxen [Naprosyn] 500 mg PO Q12 PRN #20 tablet 04/12/17 Acetaminophen [Tylenol Extra 500 mg PO Q6 PRN #20 tab 08/31/17 Strength] Esomeprazole Magnesium [Nexium] 20 mg PO DAILY #30 capsule. 08/31/17 SITagliptin [Januvia] 100 mg PO DAILY #30 tab 08/31/17 Sod Phos,M-B/Na Phos,Di-Ba [Fleet 133 ml RC ONCE PRN #1 enema 02/07/18 Enema] - Allergies Allergies/Adverse Reactions: Allergies Allergy/AdvReac Type Severity Reaction Status Date / Time No Known Allergies Allergy Verified 09/27/16 13:37 Review of Systems ROS Statement: Except As Marked, All Systems Reviewed And Found Negative Constitutional: Negative for: Fever, Chills Gastrointestinal: Positive for: Abdominal Pain (lower), Constipation. Negative for: Nausea, Vomiting, Diarrhea Physical Exam - Reviewed Nursing Documentation Reviewed: Yes Vital Signs Reviewed: Yes - Physical Exam Appears: Positive for: No Acute Distress Head Exam: Positive for: ATRAUMATIC, NORMAL INSPECTION, NORMOCEPHALIC Skin: Positive for: Normal Color, Warm, Dry Eye Exam: Positive for: Normal appearance, EOMI, PERRL Neck: Positive for: Normal, Painless ROM Cardiovascular/Chest: Positive for: Regular Rate, Rhythm. Negative for: Murmur Respiratory: Positive for: Normal Breath Sounds. Negative for: Respiratory Distress Gastrointestinal/Abdominal: Positive for: Tenderness (mild bilateral lower). Negative for: Guarding, Rebound Back: Positive for: Normal Inspection. Negative for: L CVA Tenderness, R CVA Tenderness, Vertebral Tenderness Extremity: Positive for: Normal ROM (upper and lower extremities). Negative for: Deformity, Swelling Neurologic/Psych: Positive for: Alert, Oriented - Laboratory Results Result Diagrams: 02/07/18 11:50 02/07/18 15:25 - ECG O2 Sat by Pulse Oximetry: 98 (RA) Pulse Ox Interpretation: Normal Medical Decision Making Medical Decision Making: Time: 10:51 Initial Impression: Constipation Initial Plan: --Abd & Pelvis IV Contrast [CT] --EKG --Urine dipstick --CBC w/ differential --PTT --PT --Urinalysis --Reevaluation Accession No. : [id number] Patient Name / ID : LAZARO ALEXANDER / [id number] Exam Date : 02/07/2018 17:39:14 ( Approved ) Study Comment : Sex / Age : / 58Y Creator : Maurice Rivera MD Dictator : Maurice Rivera MD Skin Peeling Machine Operator : Braided Rug Maker : Maurice Rviera MD Approver2 : Report Date : 02/07/2018 18:15:57 My Comment : Date of service: 02/07/2018 PROCEDURE: CT Abdomen and Pelvis with contrast HISTORY: BLQ pain, constipation X 6 days COMPARISON: 08/31/2017 abdominal ultrasound. TECHNIQUE: Intravenous contrast dose: 90 cc Omnipaque 300 Radiation dose: Total exam DLP = 419.96 mGy-cm. This CT exam was performed using one or more of the following dose reduction techniques: Automated exposure control, adjustment of the mA and/or kV according to patient size, and/or use of iterative reconstruction technique. FINDINGS: LOWER THORAX: Unremarkable. LIVER: Unremarkable. No gross lesion or ductal dilatation. GALLBLADDER AND BILE DUCTS: Unremarkable. PANCREAS: Unremarkable. No gross lesion or ductal dilatation. SPLEEN: Unremarkable. ADRENALS: Unremarkable. No mass. KIDNEYS AND URETERS: Unremarkable. No hydronephrosis. No solid mass. VASCULATURE: Unremarkable. No aortic aneurysm. Atherosclerotic calcification and mural plaque present. Findings are seen throughout the aorta BOWEL: Constipation without fecal impaction or obstruction. APPENDIX: Normal appendix. PERITONEUM: Unremarkable. No free fluid. No free air. LYMPH NODES: Unremarkable. No enlarged lymph nodes. BLADDER: Unremarkable. REPRODUCTIVE: Unremarkable. BONES: No acute fracture. OTHER FINDINGS: None. IMPRESSION: No acute findings related to/ accounting for the clinical presentation. Constipation without fecal impaction or obstruction. Scribe Attestation: Documented by Ayush Stanley, acting as a scribe for Melissa Inman MD. Provider Scribe Attestation: All medical record entries made by the Scribe were at my direction and personally dictated by me. I have reviewed the chart and agree that the record accurately reflects my personal performance of the history, physical exam, medical decision making, and the department course for this patient. I have also personally directed, reviewed, and agree with the discharge instructions and disposition. Disposition - Clinical Impression Clinical Impression: Constipation, Hyperglycemia - Disposition Disposition: Routine/Home Disposition Time: 18:30 Condition: STABLE Additional Instructions: FOLLOW-UP WITH PMD WITHIN 2 DAYS FOR REEVALUATION. Prescriptions: Sod Phos,M-B/Na Phos,Di-Ba [Fleet Enema] 133 ml RC ONCE PRN #1 enema PRN Reason: Constipation Instructions: Constipation in Adults, Hyperglycemia, Adult Forms: [employer] [facility] ([place]), [facility] ED School/Work Excuse Print Language: WALLISIAN
[2018-02-07 11:56] LABS: BASO % 0.3 % (0.0-2.0); EOS # 0.1 K/uL (0.0-0.7); EOS % 2.2 % (0.0-4.0); HEMOGLOBIN 14.2 g/dL (12.0-16.0); LYMPH # 1.5 K/uL (1.0-4.3); LYMPH % 23.9 % (20.0-40.0); MEAN CELL VOLUME 90.2 fl (81.0-99.0); MEAN CORPUSCULAR HEMOGLOBIN 29.5 pg (27.0-31.0); MEAN CORPUSCULAR HGB CONC 32.7 g/dL (33.0-37.0); MEAN PLATELET VOLUME 9.6 fl (7.2-11.7); MONO # 0.4 K/uL (0.0-0.8); MONO % 6.7 % (0.0-10.0); NEUT # 4.3 K/uL (1.8-7.0); NEUT % 66.9 % (50.0-75.0); NRBC % 0.1 % (0.0-0.0); RBC 4.8 Mil/uL (3.80-5.20); RED CELL DISTRIBUTION WIDTH 13.8 % (11.5-14.5); WHITE BLOOD COUNT 6.4 K/uL (4.8-10.8)
[2018-02-07 12:00] LABS: INR 0.9; PROTHROMBIN TIME 10.2 Seconds (9.8-13.1)
[2018-02-07 12:02] LABS: PARTIAL THROMBOPLASTIN TIME 28.9 Seconds (25.6-37.1)
[2018-02-07] MEDS ORDERED: Sodium Chloride 0.9% 1,000 ML IV STA ×2 (12:37→15:10)
[2018-02-07 12:42] LABS: URINE BILIRUBIN NEGATIVE (NEGATIVE); URINE BLOOD NEGATIVE (NEGATIVE); URINE CLARITY CLEAR (Clear); URINE COLOR YELLOW (YELLOW); URINE GLUCOSE (UA) >=500 mg/dL (Normal); URINE LEUKOCYTE ESTERASE NEG Leu/uL (Negative); URINE PROTEIN NEGATIVE (NEGATIVE); URINE UROBILINOGEN 0.2-1.0 mg/dL (0.2-1.0)
[2018-02-07 16:17] LABS: ALB/GLOB RATIO 1.1 (1.0-2.1); ALBUMIN 3.7 g/dL (3.5-5.0); ALT/SGPT 16 U/L (9-52); AST/SGOT 23 U/L (14-36); BLOOD UREA NITROGEN 14 mg/dl (7-17); CALCIUM 8.6 mg/dL (8.4-10.2); GFR NON-AFRICAN AMERICAN > 60
[2018-02-07 16:26] VITALS: PULSE 76
[2018-02-07] MEDS ORDERED: Iohexol 300 100 ML IJ ONE (17:33)
[2018-02-07] MEDS ORDERED: Sodium Chloride 0.9% 50 ML IV ONE (17:34)
--- NOTE | 2018-02-07 18:19 | CT ---
Date of service: 02/07/2018 PROCEDURE: CT Abdomen and Pelvis with contrast HISTORY: BLQ pain, constipation X 6 days COMPARISON: 08/31/2017 abdominal ultrasound. TECHNIQUE: Intravenous contrast dose: 90 cc Omnipaque 300 Radiation dose: Total exam DLP = 419.96 mGy-cm. This CT exam was performed using one or more of the following dose reduction techniques: Automated exposure control, adjustment of the mA and/or kV according to patient size, and/or use of iterative reconstruction technique. FINDINGS: LOWER THORAX: Unremarkable. LIVER: Unremarkable. No gross lesion or ductal dilatation. GALLBLADDER AND BILE DUCTS: Unremarkable. PANCREAS: Unremarkable. No gross lesion or ductal dilatation. SPLEEN: Unremarkable. ADRENALS: Unremarkable. No mass. KIDNEYS AND URETERS: Unremarkable. No hydronephrosis. No solid mass. VASCULATURE: Unremarkable. No aortic aneurysm. Atherosclerotic calcification and mural plaque present. Findings are seen throughout the aorta BOWEL: Constipation without fecal impaction or obstruction. APPENDIX: Normal appendix. PERITONEUM: Unremarkable. No free fluid. No free air. LYMPH NODES: Unremarkable. No enlarged lymph nodes. BLADDER: Unremarkable. REPRODUCTIVE: Unremarkable. BONES: No acute fracture. OTHER FINDINGS: None. IMPRESSION: No acute findings related to/ accounting for the clinical presentation. Constipation without fecal impaction or obstruction.
--- NOTE | 2018-02-07 18:46 | CARD ---
APPROVED REPORT Date of service: 02/07/2018 EKG Measurement Heart [id number] <Conclusion> Normal sinus rhythm Septal infarct, age undetermined Abnormal ECG
[2018-02-07 18:48] VITALS: BP 150/70; RESP 17; TEMP 97.9
[2018-02-10 17:41] VITALS: O2SAT 98
== END 2018-02-07 18:48 | disposition home or self-care (01) ==
LOC: H.ER 10:32
DX: K59.00 Constipation, unspecified (principal); E11.9 Type 2 diabetes mellitus without complications; I10 Essential (primary) hypertension
CPT/HCPCS: 74177; 80053; 81003; 82948; 85025; 85610; 85730; 93005; 96360; 96361; 99284; J7030; Q9967